=== PATIENT | male | born 1975 | race Caucasian/White ===

== ENCOUNTER 2022-10-30 00:14 | Emergency (ER) | payer OTHER, SELFPAY ==
[2022-10-30 00:20] VITALS: BP 140/70; PULSE 100; O2SAT 96; BMI 22.1
[2022-10-30 00:33] VITALS: BP 135/81; PULSE 104; RESP 18; TEMP 36.7; O2SAT 99
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
--- NOTE | 2022-10-30 01:06 | MHC.EDTECH ---
This tech assisted with lac to front of head. This tech cleaned patients face and lac to top of head. Patent is resting comfortably at this time. Psychiatric Orderly at bedside with patient
== END 2022-10-30 01:40 | disposition home or self-care (01) ==
PROVIDERS: Emergency Provider Emergency Medicine
DX: S01.81XA Laceration without foreign body of other part of head, initial encounter (principal); Y00.XXXA Assault by blunt object, initial encounter; Y93.89 Activity, other specified; Y92.039 Unspecified place in apartment as the place of occurrence of the external cause; Y99.9 Unspecified external cause status
CPT/HCPCS: 12001; 99284

== ENCOUNTER 2022-11-07 10:24 | Emergency (ER) | payer OTHER, SELFPAY ==
[2022-11-07 10:29] VITALS: BP 119/81; PULSE 75; RESP 17; TEMP 35.7; O2SAT 99; BMI 25.4
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
== END 2022-11-07 11:12 | disposition home or self-care (01) ==
LOC: HO.ED 10:43
PROVIDERS: Emergency Provider Emergency Medicine
DX: Z48.02 Encounter for removal of sutures (principal)
CPT/HCPCS: 99282

== ENCOUNTER 2023-09-09 14:56 | Inpatient (IN) | payer OTHER, SELFPAY ==
[2023-09-09] VITALS (7 sets, daily range): BP systolic 117–135; BP diastolic 72–94; PULSE 89–130; RESP 16–18; TEMP 36.2–36.4; O2SAT 96–97; BMI 24.0
--- NOTE | ~2023-09-09 | XR_ITS ---
EXAMINATION: XR CHEST CLINICAL INFORMATION: Syncope COMPARISON: None available. TECHNIQUE: Frontal view of the chest was obtained. FINDINGS: No significant abnormality is noted involving the heart, lungs, mediastinum, bony thorax or soft tissues. XR/XR chest 1V IMPRESSION: Unremarkable examination.
--- NOTE | ~2023-09-09 | CT_ITS ---
EXAMINATION: CT HEAD WITHOUT CONTRAST CLINICAL INFORMATION: Syncope. Rule out stroke, bleed, mass effect. COMPARISON: None available. TECHNIQUE: Contiguous axial imaging was performed from the skull base to vertex without intravenous administration of contrast. This CT examination was performed using dose optimization techniques as appropriate, variously including the following: *Automated exposure control *Adjustment of mA and/or kV according to patient size (this includes techniques or standardized protocols for targeted exams where dose is matched to indication/reason for exam; i.e. extremities or head) *Use of iterative reconstruction technique DLP: 739 mGy-cm FINDINGS: There is no intracranial hemorrhage. There is no evidence of acute/subacute cerebral or cerebellar infarction. There is no midline shift, mass effect, or extra-axial fluid collection. No hydrocephalus. The mastoid air cells are well aerated. Paranasal sinuses are clear. CT/CT head/brain wo IV con IMPRESSION: No acute intracranial pathology. No intracranial hemorrhage or evidence of acute/subacute cerebral or cerebellar infarction. No mass effect.
--- NOTE | 2023-09-09 15:22 | ECG_ITS ---
Test Reason : Syncope Blood Pressure : / mmHG Vent. Rate : 102 BPM Atrial Rate : 102 BPM P-R Int : 170 ms QRS Dur : 080 ms QT Int : 368 ms P-R-T Axes : 066 000 037 degrees QTc Int : 479 ms Sinus tachycardia Otherwise normal ECG No previous ECGs available Referred By: Jacky Avila Electronically Signed By:ADAN KEATING MD
--- NOTE | 2023-09-09 15:22 | ED.SYNCOPE ---
HPI - Syncope General Chief Complaint: Syncope Stated Complaint: UNRESPONSIVE EPISODE,AMS NOW,NOT SPEAKING PER EMS Time Seen by Provider: 09/09/23 15:21 Source: patient, family and EMS Mode of arrival: EMS Limitations: no limitations History of Present Illness HPI narrative: 48-year-old male who presents emergency department for evaluation of possible seizure. Patient has no memory of the event the information comes from the patient's who is here in the emergency department with him. Patient was sitting on the sofa talking to his . His states that he suddenly started shaking and frothing at the mouth. She lied her down on his side until the shaking stopped. She states that it lasted approximately 3-5 minutes. After the shaking event resolved the patient appeared to be sleeping and snoring. called an ambulance by the time the patient came to the emergency department he was awake and alert. The patient states he has never had a seizure before. He states he does drink at least 4 shots of bourbon per day. His last drink was yesterday. He states that he often does get the shakes when he stops drinking. He has never had delirium tremens. He does smoke marijuana 2 to 3 times daily. He denies drug use. The patient was started on hydroxyzine in September 2023 for anxiety. Seizures this did as an adverse reaction to hydroxyzine. Related Data Allergies Allergy/AdvReac Type Severity Reaction Status Date / Time No Known Allergies Allergy Verified 09/09/23 15:25 [No Known Allergies*] Review of Systems Review of Systems: Yes all other systems are reviewed and are negative [facility] Past Medical History [facility] Narrative: Past medical history: Anxiety. Social history: Patient is and his is here in the emergency department with him. The patient does smoke cigarettes. He drinks 4 shots of bourbon daily with his last drink being yesterday. He marijuana 2-3 times daily. Social History Social History Alcohol intake: current Alcohol intake frequency: a few times a month Alcohol type: beer Smoked in Last 30 Days: Yes Use of substances other than those prescribed or required for medical reasons: Yes Substance Use Type: Marijuana Substance Use Frequency: Chronic Longstanding Last Used Substance: Hours (ago) Any prior treatment program specific to substance use: No Advance Directives: No Advance Directives Information Provided: No Physical Exam Vital Signs: Vital Signs: Last Vital Signs Temp 97.6 F 09/09/23 15:27 Pulse 112 H 09/09/23 15:27 Resp 18 09/09/23 15:27 BP 135/94 H 09/09/23 15:27 Pulse Ox 97 09/09/23 15:36 O2 Del Method Room Air 09/09/23 15:36 BMI result Body Mass Index 24.0 Vital signs were normal except for an elevated blood pressure of 135/94. Exam: General: Awake, alert in no distress, answers questions appropriately, does have bilateral nystagmus Head: Normocephalic, atraumatic EENT: PERRL, Lids normal, sclera normal, conjunctiva normal, nose normal , ears normal, throat without erythema or exudates Neck: Supple, no adenopathy Lung: breath sounds symmetric, no wheezing, rales or rhonchi Chest: symmetric movement, nontender Heart: regular rate and rhythm, normal S1, S2 no murmurs or rubs Abdomen: soft, non-tender, nondistended, normal bowel sounds Back: no vertebral tenderness, no CVAT Extremities: no deformities, moves all extremities symmetrically Neuro: Awake, alert, oriented, normal speech, cranial nerves intact, moves all extremities symmetrically Psych: Pleasant, cooperative Medications Administered Generic Name Dose Route Start Last Admin Trade Name Freq PRN Reason Stop Dose Admin Sodium Chloride 1,000 mls @ 999 mls/hr 09/09/23 15:22 09/09/23 15:43 Ns IV 09/09/23 16:22 999 mls/hr .Q1H1M STA Administration Medical Decision Making Medical Decision Making [facility] Narrative: 48-year-old male anxiety, chronic distended who presents emergency department for evaluation of possible seizure. Patient's witnessed a shaking event which is consistent with a tonic-clonic seizure, lasting 3-5 minutes with a postictal period which was all by the time he got to the emergency department. Patient does drink 4 shots of bourbon per day in his last drink was yesterday. He does get shakes when he stops drinking but he has never had delirium tremors. The patient was started hydroxyzine in July of 2023 for anxiety and seizures listed as an adverse reaction for this medication. Vital signs did reveal an elevated blood pressure of 135/94 and elevated pulse of 112. Exam was otherwise unremarkable. Differential diagnosis: ?Includes but is not limited to seizure, alcohol withdrawal seizure, seizure caused by hydroxyzine, electrolyte abnormality, anemia, Patient was initially treated with the following: CBC, CMP, lipase, troponin, lactic acid, CK, PT/INR, ethanol level, drug screen urine, magnesium, phosphate Course: 16:42 My interpretation patient's laboratory evaluation is as follows: CBC normal. PT/INR normal. Lactic acid 5.4-this is consistent with seizure. AST elevated 40 CK elevated 427-secondary to seizure. Ethanol level was below detectable limits. At the end of my shift, patient's COVID-19, RSV and influenza pending. CT scan of the head is also pending. Patient's seizure may be caused by alcohol withdrawal, hydroxyzine or combination of the two. Therefore give the patient Ativan 1 mg IV for possible withdrawal, patient will be placed on CIWA protocol. Patient QTC interval is prolonged at 479 milliseconds, therefore I ordered magnesium 2 g IV. At the end of my shift, patient's care was turned over to my colleague, Dr. Halle Fowler Admission/Observation Consideration of admission/observation: Escalation of care including admission/observation considered Lab Data MDM Lab Attestation statement: I reviewed the patient's lab results. 09/09/23 15:41 09/09/23 15:41 Labs: Lab Results 09/09/23 Range/Units 15:41 WBC 10.6 (4.8-10.8) X10*3/uL RBC 5.81 H (4.60-5.80) X10*6/uL Hgb 14.5 (14.0-18.0) g/dl Hct 43.7 (42.0-52.0) % MCV 75.2 L (80.0-98.0) fL MCH 25.0 L (27.0-33.0) pg MCHC 33.2 (31.0-36.0) g/dl RDW 15.9 (11.0-16.0) % Plt Count 213 (160-400) X10*3/uL MPV 10.6 (9.4-12.4) fL Immature Gran % (Auto) 0.6 H (0.0-0.4) % Neut % (Auto) 71.5 (45-73) % Lymph % (Auto) 20.0 (20-40) % [place] % (Auto) 6.4 (2-11) % Eos % (Auto) 0.9 (0-4) % Baso % (Auto) 0.6 (0-2) % Lymph # (Auto) 2.1 (1.2-4.9) X10*3/uL [place] # (Auto) 0.7 (0.1-1.2) X10*3/uL Eos # (Auto) 0.1 (0.0-0.4) X10*3/uL Baso # (Auto) 0.1 (0.0-0.2) X10*3/uL Abs Immat Gran (auto) 0.06 H (0.00-0.03) X10*3/uL Absolute Neuts (auto) 7.6 (2.0-8.3) x10*3/uL Absolute Nucleated RBC 0.000 (0.0-0.012) X10*3/uL Nucleated RBC % (auto) 0.0 (0.0-0.2) /100WBC PT 10.9 L (11.1-13.3) SEC INR 0.9 (0.9-1.1) Sodium 136 (135-145) mmol/L Potassium 3.4 (3.3-5.1) mmol/L Chloride 96 (96-108) mmol/L Carbon Dioxide 28 (22-29) mmol/L Anion Gap 15 (12-20) BUN 12 (9-16) mg/dL Creatinine 1.18 (0.5-1.4) mg/dL Estim Creat Clear Calc 78.2 Estimated GFR > 60 Random Glucose 145 H (60-115) mg/dL Calcium 10.3 H (8.4-10.2) mg/dL Total Bilirubin 0.9 (0.0-1.0) mg/dL AST 40 H (5-37) U/L ALT 24 (0-40) U/L Alkaline Phosphatase 79 (39-117) U/L Total Creatine Kinase 427 H (38-174) U/L Total Protein 8.4 H (6.5-8.0) g/dL Albumin 4.6 (3.5-5.0) g/dL Lipase 26 (8-78) U/L Ethyl Alcohol < 10 mg/dL Independent Interpretation I performed an independent interpretation of an: EKG Interpretation: My independent interpretation patient's 12 EKG is as follows: Sinus tachycardia with a rate of 102, normal RI interval, QRS duration, prolonged QTC of 479 milliseconds. No old EKG for comparison Critical Care Time Critical Care Time Critical Care Time: Yes Total Critical Care Time: 45 Attestation: Critical Care: The patient was critically ill with a high probability of imminent or life threatening deterioration. I spent greater than 30 minutes of discontinuous time evaluating the patient,delivering critical care at the bedside, discussing and evaluating pertinent data with consultants. Critical care time does not include time spent performing separately billable procedures or teaching. Total time spent performing critical care was 45 minutes. Discharge Plan Discharge Clinical Impression: New onset seizure, Alcohol withdrawal, Prolonged QT interval Patient Disposition: Still a Patient
[2023-09-09] MEDS: 0.9 % Sodium Chloride 1,000 ML 999 ML IV (15:43)
[2023-09-09 15:46] LABS: MANUAL DIFF FLAG NO
[2023-09-09 15:48] LABS: Basophils Absolute Auto 0.1 X10*3/uL (0.0-0.2); Basophils Percent Auto 0.6 % (0-2); Eosinophils Absolute Auto 0.1 X10*3/uL (0.0-0.4); Eosinophils Percent Auto 0.9 % (0-4); Hematocrit 43.7 % (42.0-52.0); Hemoglobin 14.5 g/dl (14.0-18.0); Imm Gran Abs Auto 0.06 X10*3/uL (0.00-0.03); Imm Gran Pct Auto 0.6 % (0.0-0.4); Lymphocytes Absolute Auto 2.1 X10*3/uL (1.2-4.9); Mean Corpuscular HGB Conc 33.2 g/dl (31.0-36.0); Mean Corpuscular Volume 75.2 fL (80.0-98.0); Mean Platelet Volume 10.6 fL (9.4-12.4); Monocytes Absolute Auto 0.7 X10*3/uL (0.1-1.2); Monocytes Percent Auto 6.4 % (2-11); Neutrophils Absolute Auto 7.6 x10*3/uL (2.0-8.3); Neutrophils Percent Auto 71.5 % (45-73); Platelet Count 213 X10*3/uL (160-400); Red Blood Count 5.81 X10*6/uL (4.60-5.80); Red Cell Distribution Width 15.9 % (11.0-16.0); White Blood Count 10.6 X10*3/uL (4.8-10.8)
[2023-09-09 16:11] LABS: INTERNATIONAL NORM RATIO 0.9 (0.9-1.1); Prothrombin Time 10.9 SEC (11.1-13.3)
[2023-09-09 16:13] LABS: Alanine Aminotransferase 24 U/L (0-40); Albumin Level 4.6 g/dL (3.5-5.0); Alkaline Phosphatase 79 U/L (39-117); Anion Gap 15 (12-20); Aspartate Amino Transferase 40 U/L (5-37); Bilirubin Total 0.9 mg/dL (0.0-1.0); Blood Urea Nitrogen 12 mg/dL (9-16); Calcium 10.3 mg/dL (8.4-10.2); Carbon Dioxide 28 mmol/L (22-29); Chloride 96 mmol/L (96-108); Creatinine Clr Calc Pharmacy 78.2; Estimated Glomerular Filt Rate > 60; Ethanol < 10 mg/dL; Glucose Random 145 mg/dL (60-115); Lipase 26 U/L (8-78); Potassium 3.4 mmol/L (3.3-5.1); Sodium 136 mmol/L (135-145); Total Protein 8.4 g/dL (6.5-8.0)
[2023-09-09 16:17] LABS: Troponin-I High Sensitivity 5.8 ng/L (<3.5-35.0)
[2023-09-09 16:24] LABS: Lactic Acid 5.4 mmol/L (0.5-2.0)
--- NOTE | 2023-09-09 16:40 | PC.NURSE ---
pt a&ox3, vss, front desk monitor intact- sinus tach on monitor, ekg performed, iv inserted, labs drawn, nasal swab obtained, seizure precautions applied, pt c/o 2/10 upper back pain which is new to him, call finney within reach, will continue to monitor.
--- NOTE | 2023-09-09 16:41 | PC.NURSE ---
pt to ct scan
[2023-09-09 16:48] LABS: Influenza A PCR NEGATIVE (Negative); Influenza B PCR NEGATIVE (Negative); Resp Syncy Virus RNA Qual PCR NEGATIVE (Negative); SARS COV2 PCR INHOUSE NEGATIVE (Negative)
[2023-09-09] MEDS: PHENobarbitaL sodium 130 MG/ML IM ONCE 339.3 MG IM (17:10)
[2023-09-09] MEDS: LORazepam 2 MG/ML VIAL 1 MG IVPUSH (17:11)
[2023-09-09] MEDS: Magnesium Sulfate/H2O 2 GM/50 ML PIGGYBACK IV (17:11)
--- NOTE | 2023-09-09 17:17 | PC.NURSE ---
Addendum entered by Rose Shah RN 09/09/23 19:07: pt has bilat nystagmus at baseline Original Note: patient a&ox3, vss, clinical research monitor intact, pt medicated per order, family at bedside, pt admitting now that family is here that hes a daily drinker of hard liquor, no seizure activity noted since arrival- seizure precautions remain intact, call finney within reach, will continue to monitor
[2023-09-09 17:32] LABS: Magnesium 1.5 mg/dL (1.6-2.6); Phosphorus 1.8 mg/dL (2.7-4.5)
[2023-09-09 17:45] LABS: Reflex Lactate? Lactic Acid Added
--- NOTE | 2023-09-09 18:19 | PHA.MEDREC ---
Pharmacy Consult ? Medication Reconciliation Pharmacy has completed the medication reconciliation. Patient's family reported medication. Marina Angulo, RianaD
[2023-09-09 19:35] LABS: ~Lactic Acid-LAB USE ONLY 1.2 mmol/L (0.5-2.0)
--- NOTE | 2023-09-09 19:52 | P.HPHOSP_ITS ---
History of Present Illness Date of Service: 09/09/23 Attending physician on admission: Torrie Baker Chief Complaint: new onset seizure 48-year-old male with history of alcohol dependence presents to the ED earlier today for evaluation of new onset seizure activity. The patient denies any history of seizures. No family history of epileptic seizure disorder. He reports he does drink between 1-2 pt of bourbon on a daily basis and has been trying to cut back drinking about 4 shots daily. Last drink was around 23:00 last night. He states he does sometimes experience withdrawal symptoms including tremors when not drinking but has never had an alcohol withdrawal seizure and has never developed delirium tremens. He reports smoking marijuana about 2-3 times daily but denies any illicit drug use. He does smoke about 5 cigarettes on a daily basis. He does not recall the seizure but his reproted to EMS the patient became stiff and tremulous and was foaming at the mouth. Lasted about 2-5 minutes and called ems. On arrival, pt tachycardic to 112, vitals otherwise stable. No hypoxia. No leukocytosis or anemia. Renal function and electrolyte levels normal except for magnesium 1.5 and phosphorus 1.8.. Initial lactic acid 5.4, repeat 1.2. Total CK 427. Troponin 5.8. Negative for any COVID-19, influenza, RSV. Ethyl alcohol level below detectable limits. UDS pending. CXR unremarkable. CT head negative for any acute intracranial abnormality. EKG shows sinus tachycardia, rate 102, no ST/T-wave abnormality. In the ED, given 1 mg lorazepam, 2 g IV magnesium, 1 L IV NS and initiated on phenobarbital per protocol. Review of Systems 2 Review of Systems: General: No fevers, malaise, unintentional weight loss HEENT: No blurred vision, diplopia. No sore throat, nasal congestion, rhinorrhea, sinus pain, ear pain Cardiovascular: No chest pain, palpitations, or leg edema Respiratory: No shortness of breath, wheezing, cough GI: No abdominal pain, nausea, vomiting, diarrhea, constipation, melena, hematochezia : No dysuria, hematuria, increased urinary frequency, decreased urinary output MSK: No myalgia, back pain Neuro: No headaches, weakness, paresthesias. +seizure Skin: No rashes or lesions [facility] Medical History (Updated 09/09/23 @ 19:58 by JANN Peñaloza) Albinism Alcohol use disorder Social History (Updated 09/09/23 @ 19:58 by JANN Peñaloza) Alcohol intake: current Alcohol intake frequency: 3 or more drinks per day Alcohol type: beer and hard liquor Patient Tobacco Use Status: Current everyday Tobacco user Smoked in Last 30 Days: Yes Use of substances other than those prescribed or required for medical reasons: Yes Substance Use Type: Marijuana Substance Use Frequency: Chronic Longstanding Last Used Substance: Hours (ago) Any prior treatment program specific to substance use: No Advance Directives: No Advance Directives Information Provided: No Nutrition Risks: No Nutritional Risk Meds Allergies Allergy/AdvReac Type Severity Reaction Status Date / Time No Known Allergies Allergy Verified 09/09/23 15:25 [No Known Allergies*] Active Medications: Current Medications Acetaminophen (Acetaminophen 325 Mg Tablet) 650 mg PO Q6H PRN PRN Reason: Pain, Mild (Pain Scale 1-3) Enoxaparin Sodium (Enoxaparin Sodium 40 Mg/0.4 Ml Syringe) 40 mg SUBCUT Q24H DONNA Hydroxyzine HCl (Hydroxyzine Hcl 25 Mg Tablet) 25 mg PO BEDTIME DONNA Thiamine HCl 100 mg/ Sodium (Chloride) 101 mls @ 202 mls/hr IV DAILY DONNA Folic Acid 1 mg/ Sodium (Chloride) 50.2 mls @ 100.4 mls/hr IV DAILY DONNA Stop: 09/12/23 09:29 Ondansetron HCl (Ondansetron Hcl 4 Mg/2 Ml Vial) 4 mg IVPUSH Q8H PRN PRN Reason: Nausea and Vomiting Pharmacy Consult (Consult Rx Etoh Phenob Im/Po) 1 each MISCELLANE ONCE PRN; Protocol PRN Reason: Consult order Phenobarbital (Phenobarbital 15 Mg Tablet) 45 mg PO BID DONNA; Protocol Stop: 09/11/23 21:01 Phenobarbital (Phenobarbital 30 Mg Tablet) 30 mg PO BID DONNA; Protocol Stop: 09/13/23 21:01 Phenobarbital (Phenobarbital 15 Mg Tablet) 15 mg PO DAILY DONNA; Protocol Stop: 09/15/23 09:01 Phenobarbital Sodium (Phenobarbital Sodium 130 Mg/Ml Vial Im Q3hx2) 254.8 mg IM Q3H DONNA; Protocol Stop: 09/09/23 23:01 Senna (Sennosides 8.6 Mg Tablet) 17.2 mg PO BEDTIME PRN PRN Reason: Constipation Home Medications Medication Instructions Recorded Confirmed Last Taken Type hydroxyzine pamoate 25 mg capsule 25 mg PO BEDTIME 09/09/23 09/09/23 Unknown History Physical Exam 2 Vital Signs and Narrative: Vital Signs: Last Vital Signs Temp 97.2 F 09/09/23 19:40 Pulse 89 09/09/23 19:40 Resp 16 09/09/23 19:45 BP 124/72 09/09/23 19:40 Pulse Ox 96 09/09/23 19:40 O2 Del Method Room Air 09/09/23 19:40 BMI result Body Mass Index 24.0 Constitutional - Awake and Alert, No apparent distress Eyes - PERRLA, EOMI Cardiovascular - S1S2, RRR, No edema Respiratory - Normal lung expansion, Normal respiratory effort, No respiratory distress, CTA bilaterally Gastrointestinal - NT / ND; +BS; No rebound or guarding Extremities - no calf tenderness bilaterally, no swelling Skin - Warm/Dry Neurological - Alert & oriented x3, CN II-XII in tact Psychological - Appropriate affect Results Labs 09/09/23 15:41 09/09/23 15:41 Labs: Laboratory Results - last 24 hr 09/09/23 09/09/23 09/09/23 15:40 15:41 16:06 MCV 75.2 L MCH 25.0 L MCHC 33.2 RDW 15.9 Plt Count 213 MPV 10.6 Immature Gran % (Auto) 0.6 H Neut % (Auto) 71.5 Lymph % (Auto) 20.0 [place] % (Auto) 6.4 Eos % (Auto) 0.9 Baso % (Auto) 0.6 Lymph # (Auto) 2.1 [place] # (Auto) 0.7 Eos # (Auto) 0.1 Baso # (Auto) 0.1 Abs Immat Gran (auto) 0.06 H Absolute Neuts (auto) 7.6 Absolute Nucleated RBC 0.000 Nucleated RBC % (auto) 0.0 PT 10.9 L INR 0.9 Anion Gap 15 Estim Creat Clear Calc 78.2 Estimated GFR > 60 Random Glucose 145 H Lactic Acid 5.4 H* Lactic Acid F/U @ 2Hr Calcium 10.3 H Phosphorus 1.8 L Magnesium 1.5 L Total Bilirubin 0.9 AST 40 H ALT 24 Alkaline Phosphatase 79 Total Creatine Kinase 427 H Troponin I High Sens 5.8 Total Protein 8.4 H Albumin 4.6 Lipase 26 Ethyl Alcohol < 10 Influenza Type A (PCR) NEGATIVE Influenza Type B (PCR) NEGATIVE RSV RNA Qual (PCR) NEGATIVE SARS-CoV-2 RNA (RT-PCR) NEGATIVE 09/09/23 19:15 MCV MCH MCHC RDW Plt Count MPV Immature Gran % (Auto) Neut % (Auto) Lymph % (Auto) [place] % (Auto) Eos % (Auto) Baso % (Auto) Lymph # (Auto) [place] # (Auto) Eos # (Auto) Baso # (Auto) Abs Immat Gran (auto) Absolute Neuts (auto) Absolute Nucleated RBC Nucleated RBC % (auto) PT INR Anion Gap Estim Creat Clear Calc Estimated GFR Random Glucose Lactic Acid Lactic Acid F/U @ 2Hr 1.2 Calcium Phosphorus Magnesium Total Bilirubin AST ALT Alkaline Phosphatase Total Creatine Kinase Troponin I High Sens Total Protein Albumin Lipase Ethyl Alcohol Influenza Type A (PCR) Influenza Type B (PCR) RSV RNA Qual (PCR) SARS-CoV-2 RNA (RT-PCR) Imaging Radiologist's Impressions: Impressions Chest X-Ray 09/09/23 16:29 IMPRESSION: Unremarkable examination. Head CT 09/09/23 16:51 IMPRESSION: No acute intracranial pathology. No intracranial hemorrhage or evidence of acute/subacute cerebral or cerebellar infarction. No mass effect. Assessment and Plan (1) Alcohol withdrawal: Status: Acute (2) New onset seizure: Status: Acute Plan 48-year-old male with history of alcohol dependence presents to the ED earlier today for evaluation of new onset seizure activity. The patient denies any history of seizures. No family history of epileptic seizure disorder. He reports he does drink between 1-2 pt of bourbon on a daily basis and has been trying to cut back drinking about 4 shots daily. Last drink was around 23:00 last night. Pt will be admitted for management of new onset seizure r/t alcohol withdrawal #Acute alcohol withdrawal with etoh w/d seizure -head ct without acute intracranial abnormality -continue phenobarbital per protocol -IV thiamine -IV folic acid -monitor on CIWA q.4h -addiction medicine consult -seizure precautions -hold on Neurology consult at this time as seizures are related to alcohol withdrawal and are unlikely to be epileptic in etiology # acute hypomagnesemia -due to etoh -repleted with IV magnesium in the ED -initiate 400 mg magnesium oxide p.o. b.i.d. -follow magnesium levels # elevated CK -likely related to seizure, not acute rhabdomyolysis # acute lactic acidosis -related to seizure, not sepsis. Resolved with IV fluids DVT prophylaxis-Lovenox Full code Patient requires inpatient stay at least 2 midnights for management of acute alcohol withdrawal with alcohol withdrawal seizure requiring close monitoring as well as phenobarbital per protocol Quality Stroke Does the patient have a stroke diagnosis?: No VTE Prior VTE?: No VTE Risk Level:: Medical - moderate - high VTE Device Contraindication: Treatment Not Indicated VTE Drug Contraindication: N/A - Med Ordered
[2023-09-09] MEDS: PHENobarbitaL sodium 130 MG/ML VIAL IM Q3Hx2 254.8 MG IM ×2 (20:02→23:16)
[2023-09-09] MEDS: Nicotine 7 MG PATCH.TD24 TRANSDERMA (20:03)
[2023-09-09] MEDS: hydrOXYzine HCL 25 MG TABLET PO (20:03)
[2023-09-09] MEDS: Enoxaparin Sodium 40 MG/0.4 ML SYRINGE SUBCUT (20:03)
--- NOTE | 2023-09-09 20:15 | PC.NURSE ---
Pt aox4 resting at the bedside. No apparent distress noted. VSS. Medicated as scheduled. Pt tolerated well. Nicotine patch placed on the left shoulder. Call finney placed within reach. Pending bed assignment. Pt is aware of plan of care.
--- NOTE | 2023-09-09 23:23 | PC.NURSE ---
Medicated as scheduled with phenobarb. Pt tolerated well. Denies any pain at this time. Urine sample collected and sent. Ambulatory with steady gait to the bathroom.
[2023-09-09 23:26] LABS: Appearance Urine Cloudy; Color Urine Dark Yellow; Glucose Urine UA Negative (Negative); Leukocyte Esterase Urine Trace (Negative); Nitrite Urine Negative (Negative); PH 5.5 (5.0-9.0); Specific Gravity - Urine >= 1.030 (1.005-1.025); UMIC TRIGGER UACC YES; Urine Blood Negative (Negative); Urine Ketones Trace mg/dL (Negative); Urine Protein 30 (1+) mg/dL (Neg-Trace)
[2023-09-09 23:27] LABS: Bacteria Urine None Seen (None Seen); Hyaline Casts Urine 0-2 /LPF (0-2); RBC Urine 0-2 /HPF (0-2); Squamous Epithelial Cell Urine 0-2 /HPF (0-2); WBC Urine 0-5 /HPF (0-5)
[2023-09-09 23:35] LABS: Amphetamine Screen Urine Not Detected (Not Detect); Barbiturates, Urine POSITIVE (Not Detect); Benzodiazepines Screen Urine Not Detected (Not Detect); Cannabinoid Screen Urine POSITIVE (Not Detect); Cocaine Screen Urine Not Detected (Not Detect); Fentanyl, urine Not Detected (Not Detect); Opiate Screen Urine Not Detected (Not Detect); Phencyclidine Screen Urine Not Detected (Not Detect)
[2023-09-10] VITALS (8 sets, daily range): BP systolic 108–144; BP diastolic 66–96; PULSE 79–105; RESP 16–20; TEMP 36.3–37.2; O2SAT 94–100
--- NOTE | 2023-09-10 01:26 | PC.NURSE ---
Pt sleeping at the bedside. No apparent distress noted. VSS. Breaths even regular and unlabored. Pending bed assignment. Monitoring is ongoing.
[2023-09-10 06:24] LABS: MANUAL DIFF FLAG NO
[2023-09-10 06:51] LABS: Anion Gap 13 (12-20); Blood Urea Nitrogen 8 mg/dL (9-16); Calcium 9.2 mg/dL (8.4-10.2); Carbon Dioxide 25 mmol/L (22-29); Chloride 98 mmol/L (96-108); Creatinine Clr Calc Pharmacy 113.9; Estimated Glomerular Filt Rate > 60; Glucose Random 114 mg/dL (60-115); Magnesium 1.8 mg/dL (1.6-2.6); Potassium 2.6 mmol/L (3.3-5.1); Sodium 133 mmol/L (135-145)
[2023-09-10 07:02] LABS: Basophils Percent Auto 0.4 % (0-2); Eosinophils Absolute Auto 0.1 X10*3/uL (0.0-0.4); Eosinophils Percent Auto 0.9 % (0-4); Hematocrit 38.6 % (42.0-52.0); Hemoglobin 12.9 g/dl (14.0-18.0); Imm Gran Abs Auto 0.05 X10*3/uL (0.00-0.03); Imm Gran Pct Auto 0.6 % (0.0-0.4); Lymphocytes Percent Auto 11.3 % (20-40); Mean Corpuscular HGB Conc 33.4 g/dl (31.0-36.0); Mean Corpuscular Hemoglobin 25.2 pg (27.0-33.0); Mean Corpuscular Volume 75.4 fL (80.0-98.0); Mean Platelet Volume 11.8 fL (9.4-12.4); Monocytes Absolute Auto 0.5 X10*3/uL (0.1-1.2); Monocytes Percent Auto 5.4 % (2-11); Neutrophils Absolute Auto 7.3 x10*3/uL (2.0-8.3); Neutrophils Percent Auto 81.4 % (45-73); Platelet Count 154 X10*3/uL (160-400); Red Blood Count 5.12 X10*6/uL (4.60-5.80)
[2023-09-10] MEDS: Magnesium Oxide 400 MG TABLET PO ×2 (07:40→17:04)
[2023-09-10] MEDS: Potassium Chloride/H20 10 MEQ/100 ML PIGGYBACK 100 MEQ IV ×4 (07:40→11:38)
[2023-09-10] MEDS: Potassium Chloride ER 20 MEQ TAB.ER.PRT 40 MEQ PO (07:40)
--- NOTE | 2023-09-10 07:45 | PC.NURSE ---
this RN resumed care of pt at this time. a&ox4. vss and up to date. sinus tachy on the telemetry monitor - HR between 105-110 bpm. updated CIWA = 0. seizure precautions remain in place. pt denies pain. per pt - his original IV access was ripped out while he was sleeping - new 20gIV placed in the right AC. patent/intact. medication administered per provider order. pt sitting upright eating breakfast at this time. in no apparent distress. no sob/wob noted. respirations even and unlabored. plan of care ongoing. call finney placed within reach.
[2023-09-10] MEDS: Nicotine 7 MG PATCH.TD24 TRANSDERMA (08:06)
[2023-09-10] MEDS: PHENobarbitaL 15 MG TABLET 45 MG PO ×2 (08:06→20:53)
[2023-09-10] MEDS: Thiamine HCL 100 MG in 0.9 % Sodium Chloride 100 ML 202 MG IV (08:07)
[2023-09-10] MEDS: Potassium Phosphate/NS 15 MMOL/250 ML PLAST..BAG 62.5 MMOL IV ×2 (08:48→13:37)
--- NOTE | 2023-09-10 08:51 | PC.NURSE ---
medication administered per provider order. pharmacy called d/t medication needed. will administer when able. plan of care ongoing. call finney placed within reach.
[2023-09-10] MEDS: Folic Acid 1 MG in 0.9 % Sodium Chloride 50 ML 100.4 MG IV (09:00)
--- NOTE | 2023-09-10 09:09 | PC.NURSE ---
pt speaking w/ hospitalist - pt aware of plans in regards to being admitted at this time.
--- NOTE | 2023-09-10 10:53 | MHC.CM.PN ---
Attempted to meet with patient in regards to discharge planning. Patient currently in bathroom. Patient's sig other, Belkis, is at bedside and able to complete CM assessment. Patient lives with Belkis, ambulates independently and had no services prior to coming to the hospital. No services anticipated to be needed because patient is not homebound. Patient does not have a PCP. Information provided to obtain a PCP. Patient does not have a HCP. Information provided on completing a HCP. Belkis will transport patient home. Continue to monitor for d/c needs.
--- NOTE | 2023-09-10 13:37 | PC.NURSE ---
vss and up to date. nsr on the dog handler. medication delivered from pharmacy/administered at this time. pt resting comfortably w/ eyes closed in no apparent distress at this time. updated CIWA = 0. seizure precautions remain in place. respirations even and unlabored. pt waiting for bed assignment at this time. call finney placed within reach.
--- NOTE | 2023-09-10 14:43 | PC.NURSE ---
admission worksheet complete. transport notified at this time.
--- NOTE | 2023-09-10 15:13 | P.PNIM_ITS ---
Subjective Subjective Date of Service: 09/10/23 Interval History: Notes improvement since admission overall. No further seizure activity noted Review of Systems Denies chest pain Denies shortness of breath Denies nausea vomiting diarrhea Denies fever chills Physical Exam 2 Vital Signs: Vital Signs: Last Vital Signs Temp 99.0 F 09/10/23 13:09 Pulse 85 09/10/23 14:22 Resp 18 09/10/23 14:22 BP 111/84 09/10/23 14:22 Pulse Ox 94 09/10/23 14:22 O2 Del Method Room Air 09/10/23 14:22 BMI result Body Mass Index 24.0 Const: Other: Awake alert no acute distress Resp: Other: Clear to auscultation bilaterally no rales rhonchi or wheezes Cardio: Other: No S4; positive S1-S2; no S3 murmurs rubs or gallops GI: Other: Soft nontender nondistended normoactive bowel sounds Extrem: Other: No edema bilaterally Objective Data Active Medications Acetaminophen (Acetaminophen 325 Mg Tablet) 650 mg PO Q6H PRN PRN Reason: Pain, Mild (Pain Scale 1-3) Enoxaparin Sodium (Enoxaparin Sodium 40 Mg/0.4 Ml Syringe) 40 mg SUBCUT Q24H [facility] Last Admin: 09/09/23 20:03 Dose: 40 mg Documented By: TING Hydroxyzine HCl (Hydroxyzine Hcl 25 Mg Tablet) 25 mg PO BEDTIME [facility] Last Admin: 09/09/23 20:03 Dose: 25 mg Documented By: TING Thiamine HCl 100 mg/ Sodium (Chloride) 101 mls @ 202 mls/hr IV DAILY [facility] Last Infusion: 09/10/23 08:48 Dose: Infused Documented By: BEL Folic Acid 1 mg/ Sodium (Chloride) 50.2 mls @ 100.4 mls/hr IV DAILY [facility] Stop: 09/12/23 09:29 Last Infusion: 09/10/23 09:30 Dose: Infused Documented By: BEL Potassium Phosphate (Kphos) 15 mmol in 250 mls @ 62.5 mls/hr IV Q4H [facility] Stop: 09/10/23 15:44 Last Admin: 09/10/23 13:37 Dose: 62.5 mls/hr Documented By: BEL Magnesium Oxide (Magnesium Oxide 400 Mg Tablet) [facility] Last Admin: 09/10/23 07:40 Dose: 400 mg Documented By: BEL Nicotine (Nicotine 7 Mg Patch.Td24) 7 mg TRANSDERMA DAILY [facility] Last Admin: 09/10/23 08:06 Dose: 7 mg Documented By: BEL Ondansetron HCl (Ondansetron Hcl 4 Mg/2 Ml Vial) 4 mg IVPUSH Q8H PRN PRN Reason: Nausea and Vomiting Pharmacy Consult (Consult Rx Etoh Phenob Im/Po) 1 each MISCELLANE ONCE PRN; Protocol PRN Reason: Consult order Phenobarbital (Phenobarbital 15 Mg Tablet) 45 mg PO BID [facility]; Protocol Stop: 09/11/23 21:01 Last Admin: 09/10/23 08:06 Dose: 45 mg Documented By: BEL Phenobarbital (Phenobarbital 30 Mg Tablet) 30 mg PO BID [facility]; Protocol Stop: 09/13/23 21:01 Phenobarbital (Phenobarbital 15 Mg Tablet) 15 mg PO DAILY [facility]; Protocol Stop: 09/15/23 09:01 Senna (Sennosides 8.6 Mg Tablet) 17.2 mg PO BEDTIME PRN PRN Reason: Constipation Labs 09/10/23 05:21 09/10/23 05:21 Labs: Laboratory Results - last 24 hr 09/09/23 09/09/23 09/09/23 15:40 15:41 16:06 MCV 75.2 L MCH 25.0 L MCHC 33.2 RDW 15.9 Plt Count 213 MPV 10.6 Immature Gran % (Auto) 0.6 H Neut % (Auto) 71.5 Lymph % (Auto) 20.0 [place] % (Auto) 6.4 Eos % (Auto) 0.9 Baso % (Auto) 0.6 Lymph # (Auto) 2.1 [place] # (Auto) 0.7 Eos # (Auto) 0.1 Baso # (Auto) 0.1 Abs Immat Gran (auto) 0.06 H Absolute Neuts (auto) 7.6 Absolute Nucleated RBC 0.000 Nucleated RBC % (auto) 0.0 PT 10.9 L INR 0.9 Anion Gap 15 Estim Creat Clear Calc 78.2 Estimated GFR > 60 Random Glucose 145 H Lactic Acid 5.4 H* Lactic Acid F/U @ 2Hr Calcium 10.3 H Phosphorus 1.8 L Magnesium 1.5 L Total Bilirubin 0.9 AST 40 H ALT 24 Alkaline Phosphatase 79 Total Creatine Kinase 427 H Troponin I High Sens 5.8 Total Protein 8.4 H Albumin 4.6 Lipase 26 Urine Color Urine Appearance Urine pH Ur Specific [place] Urine Protein Urine Glucose (UA) Urine Ketones Urine Blood Urine Nitrite Ur Leukocyte Esterase Urine RBC Urine WBC Ur Squamous Epith Cells Urine Bacteria Hyaline Casts Urine Opiates Screen Urine Fentanyl Screen Ur Barbiturates Screen Ur Phencyclidine Scrn Ur Amphetamines Screen U Benzodiazepines Scrn Urine Cocaine Screen U Marijuana (THC) Screen Ethyl Alcohol < 10 Influenza Type A (PCR) NEGATIVE Influenza Type B (PCR) NEGATIVE RSV RNA Qual (PCR) NEGATIVE SARS-CoV-2 RNA (RT-PCR) NEGATIVE 09/09/23 09/09/23 09/10/23 19:15 23:16 05:21 MCV 75.4 L MCH 25.2 L MCHC 33.4 RDW 15.0 Plt Count 154 L D MPV 11.8 Immature Gran % (Auto) 0.6 H Neut % (Auto) 81.4 H Lymph % (Auto) 11.3 L [place] % (Auto) 5.4 Eos % (Auto) 0.9 Baso % (Auto) 0.4 Lymph # (Auto) 1.0 L [place] # (Auto) 0.5 Eos # (Auto) 0.1 Baso # (Auto) 0.0 Abs Immat Gran (auto) 0.05 H Absolute Neuts (auto) 7.3 Absolute Nucleated RBC 0.000 Nucleated RBC % (auto) 0.0 PT INR Anion Gap 13 Estim Creat Clear Calc 113.9 Estimated GFR > 60 Random Glucose 114 Lactic Acid Lactic Acid F/U @ 2Hr 1.2 Calcium 9.2 D Phosphorus Magnesium 1.8 Total Bilirubin AST ALT Alkaline Phosphatase Total Creatine Kinase Troponin I High Sens Total Protein Albumin Lipase Urine Color Dark Yellow Urine Appearance Cloudy Urine pH 5.5 Ur Specific [place] >= 1.030 H Urine Protein 30 (1+) H Urine Glucose (UA) Negative Urine Ketones Trace Urine Blood Negative Urine Nitrite Negative Ur Leukocyte Esterase Trace H Urine RBC 0-2 Urine WBC 0-5 Ur Squamous Epith Cells 0-2 Urine Bacteria None Seen Hyaline Casts 0-2 Urine Opiates Screen Not Detected Urine Fentanyl Screen Not Detected Ur Barbiturates Screen POSITIVE H Ur Phencyclidine Scrn Not Detected Ur Amphetamines Screen Not Detected U Benzodiazepines Scrn Not Detected Urine Cocaine Screen Not Detected U Marijuana (THC) Screen POSITIVE H Ethyl Alcohol Influenza Type A (PCR) Influenza Type B (PCR) RSV RNA Qual (PCR) SARS-CoV-2 RNA (RT-PCR) Assessment and Plan (1) Alcohol withdrawal: Status: Acute (2) New onset seizure: Status: Acute (3) Prolonged QT interval: Status: Acute Plan 48-year-old male with history of alcohol dependence presents to the ED earlier today for evaluation of new onset seizure activity. The patient denies any history of seizures. No family history of epileptic seizure disorder. He reports he does drink between 1-2 pt of bourbon on a daily basis and has been trying to cut back drinking about 4 shots daily. Last drink was around 23:00 last night. Pt will be admitted for management of new onset seizure r/t alcohol withdrawal 1.Acute alcohol withdrawal with etoh w/d seizure -CIWA 0 -continue phenobarbital per protocol -IV thiamine/IV folic acid -monitor on CIWA q.4h 2.Acute hypomagnesemia/hypophosphatemia/hypokalemia -all repleted -follow renals/divalents 3.Elevated CK -likely related to seizure -follow CPK Lovenox Full code Patient requires ongoing hospitalization for phenobarb protocol secondary to alcohol withdrawal and repletion of divalents Quality Stroke Does the patient have a stroke diagnosis?: No VTE Prior VTE?: No VTE Risk Level:: Medical - moderate - high VTE Device Contraindication: Treatment Not Indicated VTE Drug Contraindication: N/A - Med Ordered
[2023-09-10] MEDS: hydrOXYzine HCL 25 MG TABLET PO (20:54)
[2023-09-10] MEDS: Enoxaparin Sodium 40 MG/0.4 ML SYRINGE SUBCUT (20:54)
--- NOTE | 2023-09-11 | ECG_ITS ---
Test Reason : qtc prolongation Blood Pressure : / mmHG Vent. Rate : 088 BPM Atrial Rate : 088 BPM P-R Int : 168 ms QRS Dur : 082 ms QT Int : 388 ms P-R-T Axes : 058 -06 025 degrees QTc Int : 469 ms Normal sinus rhythm Normal ECG When compared with ECG of 09-SEP-2023 15:43, No significant change was found Referred By: Kenneth Almanza Electronically Signed By:ADAN KEATING MD
[2023-09-11 03:36] VITALS: BP 125/80; PULSE 88; RESP 16; TEMP 36.7; O2SAT 94
[2023-09-11 06:56] LABS: MANUAL DIFF FLAG NO
[2023-09-11 07:08] VITALS: BP 125/81; PULSE 87; RESP 20; TEMP 36.3; O2SAT 96
[2023-09-11 07:22] LABS: Alanine Aminotransferase 26 U/L (0-40); Albumin Level 3.6 g/dL (3.5-5.0); Alkaline Phosphatase 64 U/L (39-117); Anion Gap 11 (12-20); Aspartate Amino Transferase 70 U/L (5-37); Bilirubin Total 0.5 mg/dL (0.0-1.0); Blood Urea Nitrogen 6 mg/dL (9-16); Carbon Dioxide 26 mmol/L (22-29); Chloride 103 mmol/L (96-108); Creatinine Clr Calc Pharmacy 104.8; Estimated Glomerular Filt Rate > 60; Glucose Fasting 95 mg/dL (60-99); Magnesium 1.8 mg/dL (1.6-2.6); Phosphorus 3.1 mg/dL (2.7-4.5); Potassium 3.8 mmol/L (3.3-5.1); Sodium 136 mmol/L (135-145); Total Protein 6.7 g/dL (6.5-8.0)
[2023-09-11 07:29] LABS: Basophils Percent Auto 0.5 % (0-2); Eosinophils Absolute Auto 0.2 X10*3/uL (0.0-0.4); Eosinophils Percent Auto 2.3 % (0-4); Hemoglobin 12.6 g/dl (14.0-18.0); Imm Gran Abs Auto 0.03 X10*3/uL (0.00-0.03); Imm Gran Pct Auto 0.4 % (0.0-0.4); Lymphocytes Absolute Auto 1.5 X10*3/uL (1.2-4.9); Lymphocytes Percent Auto 18.9 % (20-40); Mean Corpuscular HGB Conc 33.2 g/dl (31.0-36.0); Mean Corpuscular Hemoglobin 25.1 pg (27.0-33.0); Mean Corpuscular Volume 75.8 fL (80.0-98.0); Mean Platelet Volume 11.3 fL (9.4-12.4); Monocytes Absolute Auto 0.5 X10*3/uL (0.1-1.2); Monocytes Percent Auto 5.9 % (2-11); Neutrophils Absolute Auto 5.7 x10*3/uL (2.0-8.3); Platelet Count 124 X10*3/uL (160-400); Red Blood Count 5.01 X10*6/uL (4.60-5.80); Red Cell Distribution Width 15.4 % (11.0-16.0); White Blood Count 7.9 X10*3/uL (4.8-10.8)
[2023-09-11] MEDS: PHENobarbitaL 15 MG TABLET 45 MG PO ×2 (09:00→20:13)
[2023-09-11] MEDS: Lactated Ringers 1,000 ML 100 ML IVCONT ×2 (09:00→17:50)
[2023-09-11] MEDS: Thiamine HCL 100 MG in 0.9 % Sodium Chloride 100 ML 202 MG IV (09:00)
[2023-09-11] MEDS: Folic Acid 1 MG in 0.9 % Sodium Chloride 50 ML 100.4 MG IV (09:00)
[2023-09-11] MEDS: Magnesium Oxide 400 MG TABLET PO ×2 (09:01→17:49)
[2023-09-11] MEDS: Nicotine 7 MG PATCH.TD24 TRANSDERMA (09:01)
[2023-09-11 11:21] VITALS: BP 143/94; PULSE 85; RESP 20; TEMP 36.2; O2SAT 99
--- NOTE | 2023-09-11 12:12 | HO.ADDICTCON ---
History of Present Illness Date of Service: 09/11/23 Chief Complaint: ETOH WD SEIZURE Reason for Consult: AUD Sources of Information: patient interviewed and chart reviewed HPI Narrative: Patient is a 48 ear old male who is currently medically admitted following alcohol withdrawal seizure at home. Patient seen in room 460, he was awake, alert engaged in interview. He reports that for a few months he has been drinking a pint of bourbon daily. Prior to this he would drink on occasion, however unclear how accurate this is based on several stories patient shared that have occurred over the years. Discussed recent seizure and how it is likely related to ETOH use and patient quite insistent that alcohol did not have anything to do with it, in fact, I had not had anything to drink since the day before . This tech writer attempted to provide connection btwn the two things, however he was steadfast in his belief--he believes that the seizure was brought on by a new mediation prescribed to him, Hydroxyzine. Assured patient that the chances of hydroxyzine being related to seizure was unlikely, and he politely disagreed. He reports strong family history of AUD Denies any history of treatment for himself Reports several days of not drinking, but then resumes due to physical sx that are uncomfortable to him. Reports numerous lifelong social stressors including inability to work, discord with his and children, and acknowledgment that he has limited coping strategies. He reports that he has been seeing a therapist for the past few months and finds this helpful He reports his goal is to be able to go to a bar and have a beer and not get out of control This tech writer introduced recovery resources and medications as an option to work towards his goal and patient politely declined . He associates medications with his seizure. He feels groups and other alcohol related support systems mean that he can not be in any space where there is alcohol, including restaurants and family events. Review of Systems Review of Systems Yes all other systems are reviewed and are negative Diagnostics Vital Signs (24Hr): Vital Signs - 24 hr 09/10/23 13:09 09/10/23 14:22 09/10/23 15:34 Temperature 99.0 F 97.7 F Pulse Rate 79 85 98 Respiratory Rate 16 18 20 Blood Pressure 108/79 111/84 144/87 H Pulse Oximetry 96 94 98 Oxygen Delivery Method Room Air Room Air Room Air 09/10/23 19:39 09/10/23 23:28 09/11/23 03:36 Temperature 98.9 F 97.4 F 98.1 F Pulse Rate 93 85 88 Respiratory Rate 16 16 16 Blood Pressure 140/88 H 131/96 H 125/80 Pulse Oximetry 100 95 94 Oxygen Delivery Method Room Air Room Air Room Air 09/11/23 07:08 09/11/23 11:21 Temperature 97.3 F 97.1 F Pulse Rate 87 85 Respiratory Rate 20 20 Blood Pressure 125/81 143/94 H Pulse Oximetry 96 99 Oxygen Delivery Method Room Air Room Air BMI result Body Mass Index 24.0 Labs 09/11/23 06:49 09/11/23 06:49 Labs: Laboratory Results - last 48 hr 09/09/23 09/09/23 09/09/23 15:40 15:41 16:06 WBC 10.6 RBC 5.81 H Hgb 14.5 Hct 43.7 MCV 75.2 L MCH 25.0 L MCHC 33.2 RDW 15.9 Plt Count 213 MPV 10.6 Immature Gran % (Auto) 0.6 H Neut % (Auto) 71.5 Lymph % (Auto) 20.0 [place] % (Auto) 6.4 Eos % (Auto) 0.9 Baso % (Auto) 0.6 Lymph # (Auto) 2.1 [place] # (Auto) 0.7 Eos # (Auto) 0.1 Baso # (Auto) 0.1 Abs Immat Gran (auto) 0.06 H Absolute Neuts (auto) 7.6 Absolute Nucleated RBC 0.000 Nucleated RBC % (auto) 0.0 PT 10.9 L INR 0.9 Sodium 136 Potassium 3.4 Chloride 96 Carbon Dioxide 28 Anion Gap 15 BUN 12 Creatinine 1.18 Estim Creat Clear Calc 78.2 Estimated GFR > 60 Random Glucose 145 H Fasting Glucose Lactic Acid 5.4 H* Lactic Acid F/U @ 2Hr Calcium 10.3 H Phosphorus 1.8 L Magnesium 1.5 L Total Bilirubin 0.9 AST 40 H ALT 24 Alkaline Phosphatase 79 Total Creatine Kinase 427 H Troponin I High Sens 5.8 Total Protein 8.4 H Albumin 4.6 Lipase 26 Urine Color Urine Appearance Urine pH Ur Specific [place] Urine Protein Urine Glucose (UA) Urine Ketones Urine Blood Urine Nitrite Ur Leukocyte Esterase Urine RBC Urine WBC Ur Squamous Epith Cells Urine Bacteria Hyaline Casts Urine Opiates Screen Urine Fentanyl Screen Ur Barbiturates Screen Ur Phencyclidine Scrn Ur Amphetamines Screen U Benzodiazepines Scrn Urine Cocaine Screen U Marijuana (THC) Screen Ethyl Alcohol < 10 Influenza Type A (PCR) NEGATIVE Influenza Type B (PCR) NEGATIVE RSV RNA Qual (PCR) NEGATIVE SARS-CoV-2 RNA (RT-PCR) NEGATIVE 09/09/23 09/09/23 09/10/23 19:15 23:16 05:21 WBC 9.0 RBC 5.12 Hgb 12.9 L Hct 38.6 L MCV 75.4 L MCH 25.2 L MCHC 33.4 RDW 15.0 Plt Count 154 L D MPV 11.8 Immature Gran % (Auto) 0.6 H Neut % (Auto) 81.4 H Lymph % (Auto) 11.3 L [place] % (Auto) 5.4 Eos % (Auto) 0.9 Baso % (Auto) 0.4 Lymph # (Auto) 1.0 L [place] # (Auto) 0.5 Eos # (Auto) 0.1 Baso # (Auto) 0.0 Abs Immat Gran (auto) 0.05 H Absolute Neuts (auto) 7.3 Absolute Nucleated RBC 0.000 Nucleated RBC % (auto) 0.0 PT INR Sodium 133 L Potassium 2.6 L* D Chloride 98 Carbon Dioxide 25 Anion Gap 13 BUN 8 L Creatinine 0.81 Estim Creat Clear Calc 113.9 Estimated GFR > 60 Random Glucose 114 Fasting Glucose Lactic Acid Lactic Acid F/U @ 2Hr 1.2 Calcium 9.2 D Phosphorus Magnesium 1.8 Total Bilirubin AST ALT Alkaline Phosphatase Total Creatine Kinase Troponin I High Sens Total Protein Albumin Lipase Urine Color Dark Yellow Urine Appearance Cloudy Urine pH 5.5 Ur Specific [place] >= 1.030 H Urine Protein 30 (1+) H Urine Glucose (UA) Negative Urine Ketones Trace Urine Blood Negative Urine Nitrite Negative Ur Leukocyte Esterase Trace H Urine RBC 0-2 Urine WBC 0-5 Ur Squamous Epith Cells 0-2 Urine Bacteria None Seen Hyaline Casts 0-2 Urine Opiates Screen Not Detected Urine Fentanyl Screen Not Detected Ur Barbiturates Screen POSITIVE H Ur Phencyclidine Scrn Not Detected Ur Amphetamines Screen Not Detected U Benzodiazepines Scrn Not Detected Urine Cocaine Screen Not Detected U Marijuana (THC) Screen POSITIVE H Ethyl Alcohol Influenza Type A (PCR) Influenza Type B (PCR) RSV RNA Qual (PCR) SARS-CoV-2 RNA (RT-PCR) 09/11/23 06:49 WBC 7.9 RBC 5.01 Hgb 12.6 L Hct 38.0 L MCV 75.8 L MCH 25.1 L MCHC 33.2 RDW 15.4 Plt Count 124 L MPV 11.3 Immature Gran % (Auto) 0.4 Neut % (Auto) 72.0 Lymph % (Auto) 18.9 L [place] % (Auto) 5.9 Eos % (Auto) 2.3 Baso % (Auto) 0.5 Lymph # (Auto) 1.5 [place] # (Auto) 0.5 Eos # (Auto) 0.2 Baso # (Auto) 0.0 Abs Immat Gran (auto) 0.03 Absolute Neuts (auto) 5.7 Absolute Nucleated RBC 0.000 Nucleated RBC % (auto) 0.0 PT INR Sodium 136 Potassium 3.8 D Chloride 103 Carbon Dioxide 26 Anion Gap 11 L BUN 6 L Creatinine 0.88 Estim Creat Clear Calc 104.8 Estimated GFR > 60 Random Glucose Fasting Glucose 95 Lactic Acid Lactic Acid F/U @ 2Hr Calcium 9.0 Phosphorus 3.1 Magnesium 1.8 Total Bilirubin 0.5 AST 70 H ALT 26 Alkaline Phosphatase 64 Total Creatine Kinase 4168 H Troponin I High Sens Total Protein 6.7 Albumin 3.6 Lipase Urine Color Urine Appearance Urine pH Ur Specific [place] Urine Protein Urine Glucose (UA) Urine Ketones Urine Blood Urine Nitrite Ur Leukocyte Esterase Urine RBC Urine WBC Ur Squamous Epith Cells Urine Bacteria Hyaline Casts Urine Opiates Screen Urine Fentanyl Screen Ur Barbiturates Screen Ur Phencyclidine Scrn Ur Amphetamines Screen U Benzodiazepines Scrn Urine Cocaine Screen U Marijuana (THC) Screen Ethyl Alcohol Influenza Type A (PCR) Influenza Type B (PCR) RSV RNA Qual (PCR) SARS-CoV-2 RNA (RT-PCR) Imaging Radiology Impressions: ITS Impressions Chest X-Ray 09/09/23 16:29 IMPRESSION: Unremarkable examination. Head CT 09/09/23 16:51 IMPRESSION: No acute intracranial pathology. No intracranial hemorrhage or evidence of acute/subacute cerebral or cerebellar infarction. No mass effect. Mental Status Exam Mental Status Exam Patient Appearance: Appropriate Level of Consciousness: Awake, Appropriate and Alert Patient Behavior: Talkative Mood Description: Calm Affect Description: Calm Speech Pattern: Clear Medications Medications Current Medications Acetaminophen (Acetaminophen 325 Mg Tablet) 650 mg PO Q6H PRN PRN Reason: Pain, Mild (Pain Scale 1-3) Enoxaparin Sodium (Enoxaparin Sodium 40 Mg/0.4 Ml Syringe) 40 mg SUBCUT Q24H [facility] Last Admin: 09/10/23 20:54 Dose: 40 mg Hydroxyzine HCl (Hydroxyzine Hcl 25 Mg Tablet) 25 mg PO BEDTIME [facility] Last Admin: 09/10/23 20:54 Dose: 25 mg Thiamine HCl 100 mg/ Sodium (Chloride) 101 mls @ 202 mls/hr IV DAILY [facility] Last Infusion: 09/11/23 09:48 Dose: Infused Folic Acid 1 mg/ Sodium (Chloride) 50.2 mls @ 100.4 mls/hr IV DAILY [facility] Stop: 09/12/23 09:29 Last Infusion: 09/11/23 09:48 Dose: Infused Lactated Ringer's (Lr) 1,000 mls @ 100 mls/hr IVCONT .Q10H [facility] Last Admin: 09/11/23 09:00 Dose: 100 mls/hr Magnesium Oxide (Magnesium Oxide 400 Mg Tablet) 400 mg PO BIDPC [facility] Last Admin: 09/11/23 09:01 Dose: 400 mg Nicotine (Nicotine 7 Mg Patch.Td24) 7 mg TRANSDERMA DAILY [facility] Last Admin: 09/11/23 09:01 Dose: 7 mg Ondansetron HCl (Ondansetron Hcl 4 Mg/2 Ml Vial) 4 mg IVPUSH Q8H PRN PRN Reason: Nausea and Vomiting Pharmacy Consult (Consult Rx Etoh Phenob Im/Po) 1 each MISCELLANE ONCE PRN; Protocol PRN Reason: Consult order Phenobarbital (Phenobarbital 15 Mg Tablet) 45 mg PO BID [facility]; Protocol Stop: 09/11/23 21:01 Last Admin: 09/11/23 09:00 Dose: 45 mg Phenobarbital (Phenobarbital 30 Mg Tablet) 30 mg PO BID [facility]; Protocol Stop: 09/13/23 21:01 Phenobarbital (Phenobarbital 15 Mg Tablet) 15 mg PO DAILY [facility]; Protocol Stop: 09/15/23 09:01 Senna (Sennosides 8.6 Mg Tablet) 17.2 mg PO BEDTIME PRN PRN Reason: Constipation Allergies Allergies Allergy/AdvReac Type Severity Reaction Status Date / Time No Known Allergies Allergy Verified 09/09/23 15:25 [No Known Allergies*] Assessment & Plan Assessment & Plan (1) Alcohol use disorder, severe, dependence: Status: Acute Code(s): F10.20 - Alcohol dependence, uncomplicated Assessment and Plan: patient declines any referrals or medications for AUD resource folder left with patient--including topics such as risk reduction related to drinking, information about medications, recovery coaching, etc. encouraged to continue with therapist unclear if there is a cognitive issue impacting patients understanding of AUD, however unable to address that in this setting Total time managing care of this patient today 35 minutes. [facility] Past Medical History Medical History (Updated 09/11/23 @ 12:13 by Noemi Bustamante CNP) Albinism Alcohol use disorder Social History Social History (Updated 09/09/23 @ 19:58 by JANN Peñaloza) Household Members: Spouse and Children Housing: House Do you presently have visiting nurse or other home services: No Alcohol intake: current Alcohol intake frequency: 3 or more drinks per day Alcohol type: beer and hard liquor Patient Tobacco Use Status: Current everyday Tobacco user Tobacco use type: Cigarette and Cigar Substance Use Type: Marijuana service: No
--- NOTE | 2023-09-11 12:38 | HO.PM.IMPN ---
Subjective Subjective Date of Service: 09/11/23 Interval History: seen and examined this morning follow up for alcohol withdrawal seizure Feeling well this morning, no withdrawal symptoms Review of Systems Review of Systems: Yes all other systems are reviewed and are negative Constitutional Constitutional: Denies chills and Denies fever(s) Cardiovascular Cardiovascular: Denies chest pain, Denies palpitations and Denies dyspnea Respiratory Respiratory: Denies cough and Denies dyspnea Gastrointestinal Gastrointestinal: Denies abdominal pain, Denies nausea and Denies vomiting Endocrine Endocrine: Denies palpitations Physical Exam Vital Signs: Vital Signs: Last Vital Signs Temp 97.1 F 09/11/23 11:21 Pulse 85 09/11/23 11:21 Resp 20 09/11/23 11:21 BP 143/94 H 09/11/23 11:21 Pulse Ox 99 09/11/23 11:21 O2 Del Method Room Air 09/11/23 11:21 BMI result Body Mass Index 24.0 Const: General: cooperative, comfortable, no acute distress, alert and awake Nutritional Appearance: average body habitus Orientation/consciousness: patient oriented x3 Eyes: Other: b/l nystagmus Resp: Effort & Inspection: normal respiratory effort, able to speak in complete sentences, no respiratory distress and no use of accessory muscles Cardio: Rate: regular rate Heart sounds: S1 normal heart sound present and S2 normal heart sound present GI: Inspection: No distended Palpation (GI): Soft to palpation and nontender Neuro: General: patient oriented x3 and moves all extremities Extrem: General: Yes no pedal edema Objective Data Active Medications Acetaminophen (Acetaminophen 325 Mg Tablet) 650 mg PO Q6H PRN PRN Reason: Pain, Mild (Pain Scale 1-3) Enoxaparin Sodium (Enoxaparin Sodium 40 Mg/0.4 Ml Syringe) 40 mg SUBCUT Q24H [facility] Last Admin: 09/10/23 20:54 Dose: 40 mg Documented By: JONATAN Hydroxyzine HCl (Hydroxyzine Hcl 25 Mg Tablet) 25 mg PO BEDTIME [facility] Last Admin: 09/10/23 20:54 Dose: 25 mg Documented By: JONATAN Thiamine HCl 100 mg/ Sodium (Chloride) 101 mls @ 202 mls/hr IV DAILY [facility] Last Infusion: 09/11/23 09:48 Dose: Infused Documented By: EFRAIN Folic Acid 1 mg/ Sodium (Chloride) 50.2 mls @ 100.4 mls/hr IV DAILY [facility] Stop: 09/12/23 09:29 Last Infusion: 09/11/23 09:48 Dose: Infused Documented By: EFRAIN Lactated Ringer's (Lr) 1,000 mls @ 100 mls/hr IVCONT .Q10H [facility] Last Admin: 09/11/23 09:00 Dose: 100 mls/hr Documented By: EFRAIN Magnesium Oxide (Magnesium Oxide 400 Mg Tablet) 400 mg PO BIDPC [facility] Last Admin: 09/11/23 09:01 Dose: 400 mg Documented By: EFRAIN Nicotine (Nicotine 7 Mg Patch.Td24) 7 mg TRANSDERMA DAILY [facility] Last Admin: 09/11/23 09:01 Dose: 7 mg Documented By: EFRAIN Ondansetron HCl (Ondansetron Hcl 4 Mg/2 Ml Vial) 4 mg IVPUSH Q8H PRN PRN Reason: Nausea and Vomiting Pharmacy Consult (Consult Rx Etoh Phenob Im/Po) 1 each MISCELLANE ONCE PRN; Protocol PRN Reason: Consult order Phenobarbital (Phenobarbital 15 Mg Tablet) 45 mg PO BID [facility]; Protocol Stop: 09/11/23 21:01 Last Admin: 09/11/23 09:00 Dose: 45 mg Documented By: EFRAIN Phenobarbital (Phenobarbital 30 Mg Tablet) 30 mg PO BID [facility]; Protocol Stop: 09/13/23 21:01 Phenobarbital (Phenobarbital 15 Mg Tablet) 15 mg PO DAILY [facility]; Protocol Stop: 09/15/23 09:01 Senna (Sennosides 8.6 Mg Tablet) 17.2 mg PO BEDTIME PRN PRN Reason: Constipation Labs 09/11/23 06:49 09/11/23 06:49 Labs: Laboratory Results - last 24 hr 09/11/23 06:49 MCV 75.8 L MCH 25.1 L MCHC 33.2 RDW 15.4 Plt Count 124 L MPV 11.3 Immature Gran % (Auto) 0.4 Neut % (Auto) 72.0 Lymph % (Auto) 18.9 L [place] % (Auto) 5.9 Eos % (Auto) 2.3 Baso % (Auto) 0.5 Lymph # (Auto) 1.5 [place] # (Auto) 0.5 Eos # (Auto) 0.2 Baso # (Auto) 0.0 Abs Immat Gran (auto) 0.03 Absolute Neuts (auto) 5.7 Absolute Nucleated RBC 0.000 Nucleated RBC % (auto) 0.0 Anion Gap 11 L Estim Creat Clear Calc 104.8 Estimated GFR > 60 Fasting Glucose 95 Calcium 9.0 Phosphorus 3.1 Magnesium 1.8 Total Bilirubin 0.5 AST 70 H ALT 26 Alkaline Phosphatase 64 Total Creatine Kinase 4168 H Total Protein 6.7 Albumin 3.6 Assessment and Plan (1) Alcohol withdrawal: Status: Acute (2) New onset seizure: Status: Acute Plan This is a 48-year-old male with history of alcohol dependence presents to the ED earlier today for evaluation of new onset seizure activity. The patient denies any history of seizures. No family history of epileptic seizure disorder. He reports he does drink between 1-2 pt of bourbon on a daily basis and has been trying to cut back drinking about 4 shots daily. Acute alcohol withdrawal with etoh w/d seizure -CIWA 0 -continue phenobarbital per protocol -IV thiamine/po folic acid Seen by addiction Medicine, defers resources at this time Acute hypomagnesemia/hypophosphatemia/hypokalemia Improved with replacement Thrombocytopenia Likely due to alcohol use Follow CBC Rhabdomyolysis likely related to seizure CPK trending up as well as AST Renal function stable IVF follow CPK and LFTs in a.m. Lovenox Full code Patient requires ongoing hospitalization for phenobarb protocol secondary to alcohol withdrawal and repletion of divalents Quality Stroke Does the patient have a stroke diagnosis?: No VTE Prior VTE?: No VTE Risk Level:: Medical - moderate - high VTE Device Contraindication: Treatment Not Indicated VTE Drug Contraindication: N/A - Med Ordered
[2023-09-11 15:41] VITALS: BP 118/82; PULSE 85; RESP 18; TEMP 36.2; O2SAT 98
[2023-09-11 19:37] VITALS: BP 139/93; PULSE 86; RESP 18; TEMP 36.4; O2SAT 98
[2023-09-11] MEDS: hydrOXYzine HCL 25 MG TABLET PO (20:14)
[2023-09-11] MEDS: Enoxaparin Sodium 40 MG/0.4 ML SYRINGE SUBCUT (20:14)
[2023-09-11 23:04] VITALS: BP 136/93; PULSE 92; RESP 18; TEMP 36.1; O2SAT 100
[2023-09-12 04:00] VITALS: BP 117/76; PULSE 81; RESP 18; TEMP 36.6; O2SAT 98
[2023-09-12 06:31] LABS: Anion Gap 11 (12-20); Carbon Dioxide 24 mmol/L (22-29); Chloride 103 mmol/L (96-108); Potassium 3.7 mmol/L (3.3-5.1); Sodium 134 mmol/L (135-145)
[2023-09-12] MEDS: Lactated Ringers 1,000 ML 100 ML IVCONT (06:31)
[2023-09-12 06:32] LABS: Alanine Aminotransferase 37 U/L (0-40); Albumin Level 3.6 g/dL (3.5-5.0); Alkaline Phosphatase 61 U/L (39-117); Aspartate Amino Transferase 124 U/L (5-37); Bilirubin Direct 0.2 mg/dL (0.0-0.5); Bilirubin Total 0.6 mg/dL (0.0-1.0); Blood Urea Nitrogen 6 mg/dL (9-16); Creatinine Clr Calc Pharmacy 112.5; Estimated Glomerular Filt Rate > 60; Glucose Fasting 98 mg/dL (60-99); Total Protein 6.4 g/dL (6.5-8.0)
[2023-09-12 06:33] LABS: Hematocrit 37.2 % (42.0-52.0); Hemoglobin 12.2 g/dl (14.0-18.0); Mean Corpuscular HGB Conc 32.8 g/dl (31.0-36.0); Mean Corpuscular Hemoglobin 24.8 pg (27.0-33.0); Mean Corpuscular Volume 75.8 fL (80.0-98.0); Platelet Count 110 X10*3/uL (160-400); Red Blood Count 4.91 X10*6/uL (4.60-5.80); White Blood Count 6.7 X10*3/uL (4.8-10.8)
[2023-09-12 07:27] VITALS: BP 131/78; PULSE 79; RESP 20; TEMP 36.2; O2SAT 94
[2023-09-12] MEDS: Magnesium Oxide 400 MG TABLET PO (08:57)
[2023-09-12] MEDS: Nicotine 7 MG PATCH.TD24 TRANSDERMA (08:58)
[2023-09-12] MEDS: Folic Acid 1 MG TABLET PO (08:58)
[2023-09-12] MEDS: PHENobarbitaL 30 MG TABLET PO (08:58)
[2023-09-12] MEDS: Thiamine HCL 100 MG in 0.9 % Sodium Chloride 100 ML 202 MG IV (09:04)
--- NOTE | 2023-09-12 10:39 | PM.DS ---
DS: Providers Provider Date of Service: 09/12/23 Date of admission: 09/09/23 19:51 Date of discharge: 09/12/23 Primary care physician: None Physician Consults: 09/09/23 19:47 Addiction Medicine Routine Consulting Provider: Addiction Covering Reason for consultation: etoh dependence Attending physician on discharge: Nicanor Ventura Discharging clinician: Lashawn Romero DS: Diagnosis Discharge Diagnosis (1) Alcohol use disorder, severe, dependence: Status: Acute (2) Alcohol withdrawal: Status: Acute (3) New onset seizure: Status: Acute (4) Rhabdomyolysis: Status: Acute DS: Summary Hospital Course Hospital Course: From H&P on the day of admission 48-year-old male with history of alcohol dependence presents to the ED earlier today for evaluation of new onset seizure activity. The patient denies any history of seizures. No family history of epileptic seizure disorder. He reports he does drink between 1-2 pt of bourbon on a daily basis and has been trying to cut back drinking about 4 shots daily. Last drink was around 23:00 last night. He states he does sometimes experience withdrawal symptoms including tremors when not drinking but has never had an alcohol withdrawal seizure and has never developed delirium tremens. He reports smoking marijuana about 2-3 times daily but denies any illicit drug use. He does smoke about 5 cigarettes on a daily basis. He does not recall the seizure but his reproted to EMS the patient became stiff and tremulous and was foaming at the mouth. Lasted about 2-5 minutes and called ems. On arrival, pt tachycardic to 112, vitals otherwise stable. No hypoxia. No leukocytosis or anemia. Renal function and electrolyte levels normal except for magnesium 1.5 and phosphorus 1.8.. Initial lactic acid 5.4, repeat 1.2. Total CK 427. Troponin 5.8. Negative for any COVID-19, influenza, RSV. Ethyl alcohol level below detectable limits. UDS pending. CXR unremarkable. CT head negative for any acute intracranial abnormality. EKG shows sinus tachycardia, rate 102, no ST/T-wave abnormality. In the ED, given 1 mg lorazepam, 2 g IV magnesium, 1 L IV NS and initiated on phenobarbital per protocol. Acute alcohol withdrawal with etoh w/d seizure Patient was admitted for alcohol withdrawal seizure and treated with phenobarbital protocol. He was supplemented with thiamine and folic acid. He was seen by addiction medicine but deferred any resources. Acute hypomagnesemia/hypophosphatemia/hypokalemia Improved with replacement Thrombocytopenia Likely due to alcohol use. Platelets trending down Rhabdomyolysis likely related to seizure. CPK continues to trend up to 11,814 as well as AST up to 124. Renal function stable thus far. Patient elected to leave AMA from the hospital. It was discussed with both him and his at the bedside that rhabdo can cause liver dysfunction and renal failure and he was advised to remain in the hospital to continue IV fluid close monitoring of both his kidney function and liver function until they started to improve. He is awake, alert, oriented and understands the risks of leaving against medical advise and wishes to proceed. He is encouraged to return to the nearest emergency department with any new or worsening symptoms. Time Attestation Total time managing care of this patient today: 32 mintues. Discharge Coordination Time (in mins): 32 Quality: Safe Use of Opioids Does Pt have an Active Cancer Diagnosis on the Problem List?: No Quality: Stroke Does the patient have a stroke diagnosis?: No Physical Exam Vital Signs: Vital Signs: Last Vital Signs Temp 97.2 F 09/12/23 07:27 Pulse 79 09/12/23 07:27 Resp 20 09/12/23 07:27 BP 131/78 09/12/23 07:27 Pulse Ox 94 09/12/23 07:27 O2 Del Method Room Air 09/12/23 07:27 BMI result Body Mass Index 24.0 Const: General: cooperative, comfortable, no acute distress, alert and awake Nutritional Appearance: average body habitus Orientation/consciousness: patient oriented x3 Eyes: Other: abnormal eye movements (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) Resp: Effort & Inspection: normal respiratory effort, able to speak in complete sentences, no respiratory distress and no use of accessory muscles Cardio: Rate: regular rate Heart sounds: S1 normal heart sound present and S2 normal heart sound present GI: Inspection: No distended Palpation (GI): Soft to palpation and nontender Neuro: General: patient oriented x3 and moves all extremities Extrem: General: Yes no pedal edema DS: Data Data Completed and Pending Labs on day of discharge: Laboratory Results - last 24 hr 09/12/23 05:50 WBC 6.7 RBC 4.91 Hgb 12.2 L Hct 37.2 L MCV 75.8 L MCH 24.8 L MCHC 32.8 RDW 15.0 Plt Count 110 L MPV 12.0 Absolute Nucleated RBC 0.000 Nucleated RBC % (auto) 0.0 Sodium 134 L Potassium 3.7 Chloride 103 Carbon Dioxide 24 Anion Gap 11 L BUN 6 L Creatinine 0.82 Estim Creat Clear Calc 112.5 Estimated GFR > 60 Fasting Glucose 98 Calcium 9.0 Total Bilirubin 0.6 Direct Bilirubin 0.2 AST 124 H ALT 37 Alkaline Phosphatase 61 Total Creatine Kinase 58046 H Total Protein 6.4 L Albumin 3.6 Discharge Plan Discharge Anticipated Discharge Date/Time: 09/12/23 10:34 Patient Disposition: Left Against Medical Advice Discharge Diagnosis: alcohol withdrawal seizure rhabdomyolysis transaminitis Referrals: Physician,None [Primary Care Provider] - 1 Week Discharge Medications: No Action hydroxyzine pamoate 25 mg capsule 25 mg PO BEDTIME Discharge Orders: Discharge Order (Routine); Ordered 09/12/23 Ordered By: Lashawn Romero Care Plan Goals: see below Health Concerns: alcohol withdrawal seizure alcohol use disorder Rhabdomyolysis Transaminitis Plan of Treatment: You have elected to leave the hospital against medical advice. IT was recommended to continue IVF and inpatient hospital stay for close monitoring of lab values to prevent renal failure etc. Although it is not a substitute for IVF and close monitoring of your kidney function and your liver function, would recommend to stay hydrated and follow up with PCP office to repeat labs as soon as possible. Return to the nearest ED if develop new or worsening symptoms. Assessment: see discharge summary
--- NOTE | 2023-09-12 10:48 | MHC.CM.PN ---
Pt left AMA.
== END 2023-09-12 10:43 | disposition left against medical advice (07) | DRG 770 ==
LOC: HO.ED 18:09 → HO.EDOVER 20:02 → HO.IMC 09-10 14:21
PROVIDERS: Emergency Medicine Emergency Medical Services; Hospitalist; Admitting Provider Physician Assistant; Emergency Provider Emergency Medicine; Visit Provider Physician Assistant Medical
DX: F10.239 Alcohol dependence with withdrawal, unspecified (principal); E87.21 Acute metabolic acidosis; M62.82 Rhabdomyolysis; R56.9 Unspecified convulsions; E83.42 Hypomagnesemia; D69.59 Other secondary thrombocytopenia; E87.6 Hypokalemia; F17.210 Nicotine dependence, cigarettes, uncomplicated; Z71.6 Tobacco abuse counseling; Z71.41 Alcohol abuse counseling and surveillance of alcoholic; Z20.822 Contact with and (suspected) exposure to COVID-19; Z79.899 Other long term (current) drug therapy
CPT/HCPCS: 0241U; 36415; 70450; 71045; 80048; 80053; 80076; 80307; 81001; 82550; 83605; 83690; 83735; 84100; 84484; 85025; 85027; 85610; 93005; 99285; J1650; J2060; J2560; J3411; J3475; J3480; J7120

== ENCOUNTER → 2023-09-09 15:22 | Outpatient (BNV) | payer OTHER, SELFPAY | PROVIDERS: Emergency Provider Emergency Medicine; Visit Provider Internal Medicine Cardiovascular Disease | DX: R00.0 Tachycardia, unspecified (principal) | CPT/HCPCS: 93010 ==

== ENCOUNTER 2023-09-09 19:51 | Outpatient (BNV) | payer OTHER, SELFPAY | END 2023-09-11 12:20 | PROVIDERS: Admitting Provider Physician Assistant; Emergency Provider Emergency Medicine; Visit Provider Internal Medicine Cardiovascular Disease | DX: I45.81 Long QT syndrome (principal) | CPT/HCPCS: 93010 ==

== ENCOUNTER → 2023-09-09 19:51 | Outpatient (BNV) | payer OTHER, SELFPAY | PROVIDERS: Admitting Provider Physician Assistant; Emergency Provider Emergency Medicine; Visit Provider Physician Assistant | DX: F10.939 Alcohol use, unspecified with withdrawal, unspecified (principal); R56.9 Unspecified convulsions; M62.82 Rhabdomyolysis | CPT/HCPCS: 99223; 99233; 99239 ==

== ENCOUNTER → 2023-09-09 19:51 | Outpatient (BNV) | payer OTHER, SELFPAY | PROVIDERS: Admitting Provider Physician Assistant; Emergency Provider Emergency Medicine; Visit Provider Nurse Practitioner Psychiatric/Mental Health | DX: F10.20 Alcohol dependence, uncomplicated (principal) | CPT/HCPCS: 99221; 99232 ==

== ENCOUNTER 2025-06-24 12:42 | Inpatient (IN) | payer OTHER, SELFPAY ==
[2025-06-24] VITALS (7 sets, daily range): BP systolic 117–166; BP diastolic 78–95; PULSE 79–116; RESP 13–20; TEMP 36.2–36.7; O2SAT 95–99; BMI 24.7; BMI 24.9
--- NOTE | ~2025-06-24 | MR_ITS ---
CLINICAL HISTORY: New onset seizure Exam: Nonenhanced MRI brain. Comparison: CT brain 09/09/2023. Findings: There is no cerebral edema or mass effect. White matter signal intensities are maintained. Diffusion weighted imaging reveals no restricted diffusion or MR evidence of acute ischemia. Susceptibility weighted imaging reveals no susceptibility artifact or evidence of intracranial hemorrhage. No sellar or parasellar lesions. Ventricular size and configuration are within normal limits. Cerebral cisterns are preserved. No significant signal abnormality seen within the paranasal sinuses or mastoid air cells. Preserved flow signal voids are present within visualized intracranial vasculature. Impression: 1. No acute intracranial abnormalities. This document has been electronically signed by: Jadon Milian MD on 06/24/2025 19:35:35
--- NOTE | 2025-06-24 12:56 | ECG_ITS ---
Test Reason : SEZIURE Blood Pressure : */* mmHG Vent. Rate : 108 BPM Atrial Rate : 108 BPM P-R Int : 154 ms QRS Dur : 84 ms QT Int : 370 ms P-R-T Axes : 56 -4 50 degrees QTcB Int : 495 ms Sinus tachycardia Otherwise normal ECG When compared with ECG of 11-Sep-2023 12:20, No significant change was found Referred By: Generic ED Physician Electronically Signed By: ADAN KEATING MD
--- NOTE | 2025-06-24 12:58 | ED.GENADULT ---
HPI - General Adult General Chief complaint: Seizure Stated complaint: ETOH Time Seen by Provider: 06/24/25 12:57 Source: patient and EMS Mode of arrival: EMS Limitations: no limitations History of Present Illness ED Provider: Shanna Gary PA-C HPI narrative: Patient is a 50 year old male with a history of alcohol withdrawal with seizures presenting to the emergency department today after a seizure. Patient states that he has not had any alcohol over the last 2 days and today he had a seizure. Patient denies any other complaints at this time. Related Data Home Medications ?Medication ?Instructions ?Recorded ?Confirmed hydroxyzine pamoate 25 mg capsule 25 mg PO BEDTIME 09/09/23 09/09/23 Allergies Allergy/AdvReac Type Severity Reaction Status Date / Time No Known Allergies (No Known Allergy Verified 06/24/25 12:54 Allergies*) Review of Systems Constitutional: Constitutional: Reports as per HPI Eyes: Eyes: Reports as per HPI ENT: Reports as per HPI Cardiovascular: Cardiovascular: Reports as per HPI Respiratory: Respiratory: Reports as per HPI Gastrointestinal: Gastrointestinal: Reports as per HPI Genitourinary: Genitourinary: Reports as per HPI Musculoskeletal: Musculoskeletal: Reports as per HPI Integumentary/Breasts: Skin/Breast: Reports as per HPI Neurologic: Reports as per HPI Psychiatric: Psychiatric: Reports as per HPI Endocrine: Endocrine: Reports as per HPI Hematologic/Lymphatic: Hematologic/Lymphatic: Reports as per HPI Allergic/Immunologic: Allergic/Immunologic: Reports as per HPI PMF Past Medical History Attestation statement: The following information was validated with the patient. Source: old records reviewed and nursing notes reviewed Medical History Albinism Alcohol use disorder Social History Social History Household Members: Spouse and Children Housing: House Do you presently have visiting nurse or other home services: No Alcohol intake: current Alcohol intake frequency: 3 or more drinks per day Alcohol type: beer and hard liquor Patient Tobacco Use Status: Current everyday Tobacco user Tobacco use type: Cigarette and Cigar Substance Use Type: Marijuana Advance Directives: No Advance Directives Information Provided: No service: No Physical Exam ED Vital Signs: Vital Signs - 24 hr 06/24/25 12:47 06/24/25 13:48 06/24/25 14:58 Temperature 98.1 F 98.0 F Pulse Rate 113 H 91 82 Respiratory Rate 18 18 16 Blood Pressure 144/95 H 144/95 H 117/78 Pulse Oximetry 96 95 97 Oxygen Delivery Method Room Air Room Air Room Air 06/24/25 16:03 Temperature 97.6 F Pulse Rate 82 Respiratory Rate 18 Blood Pressure 129/87 Pulse Oximetry 98 Oxygen Delivery Method Room Air BMI result Body Mass Index 24.7 Const General: cooperative, no acute distress, alert and awake Nutritional Appearance: well nourished Orientation/consciousness: patient oriented x3 HENMT Head: Yes normal to inspection and Yes atraumatic Ears: hearing grossly normal bilaterally and external ears normal General nose exam: Normal external nose present, no nasal discharge noted and no epistaxis Face and sinus: Yes normal facial exam, No abrasion and No laceration Mouth: Normal oral and palatal mucosa present, no drooling and no muffled voice Eyes General: appearance normal, both eyes and all related structures Periorbital: periorbital findings normal Eyelids: Yes eyelids normal Conjunctivae: conjunctivae normal Pupils: Equal, round and reactive pupils present EOM: EOMs intact bilaterally Neck Neck: Yes normal visual inspection and Yes full ROM Resp Effort & Inspection: normal respiratory effort and able to speak in complete sentences Neuro General: patient oriented x3, moves all extremities and CN's II-XI intact bilaterally Cranial nerves: Yes Equal, round and reactive pupils present Cognition (Neuro): normal cognition Extrem General: Yes normal to inspection, Yes full ROM and Yes capillary refill normal Psych Appearance: grossly normal Mental Status: mental status grossly normal Affect: normal affect Attitude: cooperative Thought process: Normal thought process present Thought content: Normal thought content present Insight: Good insight present (Psych) Medications Administered Generic Name Dose Route Start Last Admin Trade Name Freq PRN Reason Stop Dose Admin Phenobarbital Sodium 212 mg 06/24/25 16:00 06/24/25 16:02 Phenobarbital Sodium 130 Mg/Ml Vial Im Q3hx2 IM 06/24/25 19:01 212 mg Q3H DONNA Administration Protocol Discontinued Medications Generic Name Dose Route Start Last Admin Trade Name Freq PRN Reason Stop Dose Admin Diazepam 2.5 mg 06/24/25 13:01 06/24/25 13:45 Diazepam 10 Mg/2 Ml Cartridge IVPUSH 06/24/25 13:02 2.5 mg STAT STA Administration Sodium Chloride 1,000 mls @ 999 mls/hr 06/24/25 13:15 06/24/25 14:57 Ns IV 06/24/25 14:15 Infused .Q1H1M DONNA Infusion Sodium Chloride 1,000 mls @ 999 mls/hr 06/24/25 13:45 06/24/25 14:57 Ns IV 06/24/25 14:45 999 mls/hr .Q1H1M DONNA Administration Phenobarbital Sodium 283 mg 06/24/25 13:00 06/24/25 13:45 Phenobarbital Sodium 130 Mg/Ml Im Once IM 06/24/25 13:01 283 mg ONCE ONE Administration Protocol Medical Decision Making Medical Decision Making MDM Narrative: Patient is a 50 year old male with a history of alcohol withdrawal with seizures presenting to the emergency department today after a seizure. Patient's physical exam was as noted in the physical exam portion of this note. Patient's blood work showed an initial lactic of 12.1 that dropped to 1.5 after 2 liters of NS. LFTs elevated with T. Bili at 1.4, AST 126, ALT 108. Ammonia elevated at 74. Patient's EKG showed sinus tachycardia with no obvious evidence of ischemia or infarct. Given patient's seizure prior to arrival, he was given 2.5mg of valium and started on the alcohol withdrawal phenobarb protocol. I spoke with the hospitalist team who agreed to admission for alcohol withdrawal. I explained my physical exam findings as well as all test results to the patient. I answered all questions asked by the patient. Patient verbalized agreement and understanding with this treatment plan and admission. Differential Diagnosis Differential Diagnoses: The differential diagnosis associated with the presentation includes Alcohol withdrawal seizure Alcohol use Alcohol abuse Admission/Observation Consideration of admission/observation: Escalation of care including admission/observation considered Patient admitted as noted in the MDM Rationale portion of this note. Consult Healthcare Provider Management of the patient was discussed with: Hospitalist (agreed to admission as noted in the MDM Rationale portion of this note.) Lab Data [facility] Lab Attestation statement: I reviewed the patient's lab results. My interpretation of these results are in the MDM Rationale portion of this note. 06/24/25 13:07 06/24/25 13:07 Labs: Lab Results 06/24/25 06/24/25 06/24/25 Range/Units 13:06 13:07 13:12 WBC 9.2 (4.8-10.8) X10*3/uL RBC 5.22 (4.60-5.80) X10*6/uL Hgb 12.8 L (14.0-18.0) g/dl Hct 39.7 L (42.0-52.0) % MCV 76.1 L (80.0-98.0) fL MCH 24.5 L (27.0-33.0) pg MCHC 32.2 (31.0-36.0) g/dl RDW 17.1 H (11.0-16.0) % Plt Count 205 D (160-400) X10*3/uL MPV 10.9 (9.4-12.4) fL Immature Gran % (Auto) 0.3 (0.0-0.4) % Neut % (Auto) 77.6 H (45-73) % Lymph % (Auto) 14.0 L (20-40) % [place] % (Auto) 7.1 (2-11) % Eos % (Auto) 0.1 (0-4) % Baso % (Auto) 0.9 (0-2) % Lymph # (Auto) 1.3 (1.2-4.9) X10*3/uL [place] # (Auto) 0.7 (0.1-1.2) X10*3/uL Eos # (Auto) 0.0 (0.0-0.4) X10*3/uL Baso # (Auto) 0.1 (0.0-0.2) X10*3/uL Abs Immat Gran (auto) 0.03 (0.00-0.03) X10*3/uL Absolute Neuts (auto) 7.1 (2.0-8.3) x10*3/uL Absolute Nucleated RBC 0.000 (0.0-0.012) X10*3/uL Nucleated RBC % (auto) 0.0 (0.0-0.2) /100WBC VBG pH 7.31 L (7.32-7.43) VBG pCO2 27 mmHg VBG pO2 75 mmHg VBG HCO3 14 L (22-26) mmol/L VBG O2 Saturation 91.0 % VBG Base Excess -10.3 mmol/L Sodium 134 L (135-145) mmol/L Potassium 3.6 (3.3-5.1) mmol/L Chloride 96 (96-108) mmol/L Carbon Dioxide 13 L (22-29) mmol/L Anion Gap 29 H (12-20) BUN 13 (9-16) mg/dL Creatinine 1.12 (0.5-1.4) mg/dL Estim Creat Clear Calc 80.6 Estimated GFR > 60 Random Glucose 102 (60-115) mg/dL Lactic Acid 12.1 H* (0.5-2.0) mmol/L Lactic Acid F/U @ 2Hr (0.5-2.0) mmol/L Calcium 9.5 (8.4-10.2) mg/dL Magnesium 1.8 (1.6-2.6) mg/dL Total Bilirubin 1.4 H (0.0-1.0) mg/dL AST 126 H (5-37) U/L ALT 108 H (0-40) U/L Alkaline Phosphatase 58 (39-117) U/L Ammonia 74 H (13-55) umol/L Total Protein 7.9 (6.5-8.0) g/dL Albumin 4.8 (3.5-5.0) g/dL Ethyl Alcohol < 10 mg/dL 06/24/25 Range/Units 16:21 WBC (4.8-10.8) X10*3/uL RBC (4.60-5.80) X10*6/uL Hgb (14.0-18.0) g/dl Hct (42.0-52.0) % MCV (80.0-98.0) fL MCH (27.0-33.0) pg MCHC (31.0-36.0) g/dl RDW (11.0-16.0) % Plt Count (160-400) X10*3/uL MPV (9.4-12.4) fL Immature Gran % (Auto) (0.0-0.4) % Neut % (Auto) (45-73) % Lymph % (Auto) (20-40) % [place] % (Auto) (2-11) % Eos % (Auto) (0-4) % Baso % (Auto) (0-2) % Lymph # (Auto) (1.2-4.9) X10*3/uL [place] # (Auto) (0.1-1.2) X10*3/uL Eos # (Auto) (0.0-0.4) X10*3/uL Baso # (Auto) (0.0-0.2) X10*3/uL Abs Immat Gran (auto) (0.00-0.03) X10*3/uL Absolute Neuts (auto) (2.0-8.3) x10*3/uL Absolute Nucleated RBC (0.0-0.012) X10*3/uL Nucleated RBC % (auto) (0.0-0.2) /100WBC VBG pH (7.32-7.43) VBG pCO2 mmHg VBG pO2 mmHg VBG HCO3 (22-26) mmol/L VBG O2 Saturation % VBG Base Excess mmol/L Sodium (135-145) mmol/L Potassium (3.3-5.1) mmol/L Chloride (96-108) mmol/L Carbon Dioxide (22-29) mmol/L Anion Gap (12-20) BUN (9-16) mg/dL Creatinine (0.5-1.4) mg/dL Estim Creat Clear Calc Estimated GFR Random Glucose (60-115) mg/dL Lactic Acid (0.5-2.0) mmol/L Lactic Acid F/U @ 2Hr 1.5 (0.5-2.0) mmol/L Calcium (8.4-10.2) mg/dL Magnesium (1.6-2.6) mg/dL Total Bilirubin (0.0-1.0) mg/dL AST (5-37) U/L ALT (0-40) U/L Alkaline Phosphatase (39-117) U/L Ammonia (13-55) umol/L Total Protein (6.5-8.0) g/dL Albumin (3.5-5.0) g/dL Ethyl Alcohol mg/dL Independent Interpretation I performed an independent interpretation of an: EKG Interpretation: I independently interpreted this EKG and am in agreement with the below findings: Vent. Rate: 108 BPM Atrial Rate: 108 BPM P-R Int: 154 ms QRS Dur: 84 ms QT Int: 370 ms P-R-T Axes: 56 -4 50 degrees QTcB Int: 495 ms Sinus tachycardia 06/24/25 1516 Independent Historian Clinical information obtained from an independent historian. History obtained from or confirmed by: EMS (EMS provided additional history and confirmed the history provided by the patient. ) Critical Care Time Critical Care Time Critical Care Time: Yes Total Critical Care Time: 49 Attestation: I spent 49 minutes of Critical Care Time with this patient. This does not include time spent on separately reported billable procedures. Discharge Plan Discharge Clinical Impression: Alcohol withdrawal, Alcohol withdrawal seizure Patient Disposition: Admitted As Inpatient Print Language: French
[2025-06-24 13:11] LABS: MANUAL DIFF FLAG NO
[2025-06-24 13:16] LABS: Venous Blood Gas Refer to POC result
[2025-06-24 13:17] LABS: VBG HCO3 14 mmol/L (22-26); VBG O2 % Saturation 91.0 %
[2025-06-24 13:18] LABS: Hematocrit 39.7 % (42.0-52.0); Hemoglobin 12.8 g/dl (14.0-18.0); Imm Gran Abs Auto 0.03 X10*3/uL (0.00-0.03); Imm Gran Pct Auto 0.3 % (0.0-0.4); Lymphocytes Absolute Auto 1.3 X10*3/uL (1.2-4.9); Mean Corpuscular HGB Conc 32.2 g/dl (31.0-36.0); Mean Corpuscular Hemoglobin 24.5 pg (27.0-33.0); Mean Corpuscular Volume 76.1 fL (80.0-98.0); NRBC Abs Auto 0.000 X10*3/uL (0.0-0.012); NRBC Pct Auto 0.0 /100WBC (0.0-0.2); Platelet Count 205 X10*3/uL (160-400); Red Blood Count 5.22 X10*6/uL (4.60-5.80); White Blood Count 9.2 X10*3/uL (4.8-10.8)
[2025-06-24 13:20] LABS: Ammonia 74 umol/L (13-55)
--- OUTSIDE RECORDS SUMMARY | 2025-06-24 13:26 | XMS_ITS | Clinical Summary ---
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 Encounters Date Type Department Care Team Description 05/09/2025 Outside Procedure [facility] [address] [place] [address] Ronny, Lory, OD Myopia of both eyes (Primary Dx) from Last 3 Months Immunizations Immunization Administration Dates Next Due Pfizer Covid-19 Vaccine 12+ 12/09/2020, Family History Medical History Relation Name Comments Glaucoma Neg Hx Social History Tobacco Use Types Packs/Day Years Used Date Smoking Tobacco: Some Days Cigarettes Smokeless Tobacco: Never Tobacco Cessation:Ready to Q uit: Not Asked; Counseling Given: Not Answered Sex and Gender Information Value Date Recorded Sex Assigned at Male 04/29/2022 10:31 AM EDT Legal Sex Male 10:31 AM EDT Gender Identity Male 04/29/2022 10:31 AM EDT Sexual Orientation Straight 04/29/2022 10 :31 AM EDT Plan of Treatment Health Maintenance Due Date Last Done Comments CT Colonography 1977 Colonoscopy 1977 Colorectal Cancer Screening 1977 Depression Screening 1977 FIT DNA/Cologuard 1977 FIT 1977 FOBT 1977 HIV Screening 1977 Lipid Panel 1977 SDOH Screening 1977 Sigmoidoscopy 1977 Disability Screening 1977 Alcohol/Substance Use Screening 1989 Family Planning (PISQ) 1992 Hepatitis C Screening 1995 DTaP/Tdap/Td Vaccines (1 - Tdap) 1996 Hepatitis B Vaccines (1 of 3 - 19+ 3-dose series) 1996 Pneumococcal Vaccine: Pediatrics (0 to 5 Years) and At-Risk Patients (6 to 49) Years (1 of 2 - PCV) 1996 Tobacco Screening 02/23/2025 02/24/2024 COVID-19 Vaccine (3 - 2024-2 6 season) 2025 12/09/2020, 11/18/2020 Influenza Vaccine (#1) 2025 Zoster Vaccines (1 of 2) 2027 RSV Patients and Patients Aged 60 years or older (1 - 1-dose 75+ series) 2052 HIB Vaccines Aged Out No longer eligi ble based on patient's age to complete this topic HPV Vaccines Aged Out No longer eligi ble based on patient's age to complete this topic Hepatitis A Vaccines Aged Out No long er eligible based on patient's age to complete this topic IPV Vaccines Aged Out No longer eligi ble based on patient's age to complete this topic Meningococcal B Vaccine Aged Out No l onger eligible based on patient's age to complete this topic Meningococcal Vaccine Aged Out No amanda deepika eligible based on patient's age to complete this topic RSV under 20 months Aged Out No longe r eligible based on patient's age to complete this topic Rotavirus Vaccines Aged Out No longer eligible based on patient's age to complete this topic Insurance [facility]
[2025-06-24 13:29] LABS: Alanine Aminotransferase 108 U/L (0-40); Albumin Level 4.8 g/dL (3.5-5.0); Alkaline Phosphatase 58 U/L (39-117); Anion Gap 29 (12-20); Aspartate Amino Transferase 126 U/L (5-37); Blood Urea Nitrogen 13 mg/dL (9-16); Calcium 9.5 mg/dL (8.4-10.2); Carbon Dioxide 13 mmol/L (22-29); Chloride 96 mmol/L (96-108); Creatinine Clr Calc Pharmacy 80.6; Estimated Glomerular Filt Rate > 60; Magnesium 1.8 mg/dL (1.6-2.6); Potassium 3.6 mmol/L (3.3-5.1); Sodium 134 mmol/L (135-145); Total Protein 7.9 g/dL (6.5-8.0)
[2025-06-24] MEDS: PHENobarbitaL sodium 130 MG/ML IM ONCE 283 MG IM (13:45)
[2025-06-24] MEDS: diazePAM 10 MG/2 ML CARTRIDGE 2.5 MG IVPUSH (13:45)
[2025-06-24 15:10] LABS: Reflex Lactate? Lactic Acid Added
--- NOTE | 2025-06-24 15:46 | PC.NURSE ---
No Sz activity since arrival to ED.
[2025-06-24] MEDS: PHENobarbitaL sodium 130 MG/ML VIAL IM Q3Hx2 212 MG IM ×2 (16:02→20:53)
[2025-06-24 16:44] LABS: ~Lactic Acid-LAB USE ONLY 1.5 mmol/L (0.5-2.0)
--- NOTE | 2025-06-24 17:24 | PM.IMHP ---
History of Present Illness Date of Service: 06/24/25 Chief Complaint: Alcohol withdrawal seizure 50-year-old male with a history withdrawal seizure report after witnessed seizure. When questioned patient states seizure was 2 days ago. States he had to nips prior to seizure; has not been drinking in excess prior to that per his account. Patient denies a family history of seizures but does recount 2 episodes of head trauma in the last 4 months Review of Systems Review of Systems: Denies chest pain Denies shortness of breath Denies nausea vomiting diarrhea Denies fever chills PMF Medical History Albinism Alcohol use disorder Social History Household Members: Spouse and Children Housing: House Do you presently have visiting nurse or other home services: No Alcohol intake: current Alcohol intake frequency: 3 or more drinks per day Alcohol type: beer and hard liquor Patient Tobacco Use Status: Current everyday Tobacco user Tobacco use type: Cigarette and Cigar Substance Use Type: Marijuana Advance Directives: No Advance Directives Information Provided: No service: No Meds Allergies Allergy/AdvReac Type Severity Reaction Status Date / Time No Known Allergies (No Known Allergy Verified 06/24/25 12:54 Allergies*) Active Medications: Current Medications Acetaminophen (Acetaminophen 325 Mg Tablet) 650 mg PO Q6H PRN PRN Reason: Pain, Mild 1-3,fever,headache Calcium Carbonate (Calcium Carbonate 750 Mg Tab.Chew) 750 mg PO Q4H PRN PRN Reason: Heartburn Enoxaparin Sodium (Enoxaparin Sodium 40 Mg/0.4 Ml Syringe) 40 mg SUBCUT Q24H DONNA Magnesium Hydroxide (Milk Of Magnesia 30 Ml Oral.Susp) 30 ml PO DAILY PRN PRN Reason: Constipation Melatonin (Melatonin 3 Mg Tablet) 6 mg PO BEDTIME PRN PRN Reason: Insomnia Pharmacy Consult (Consult Rx Etoh Phenob Im/Po) 1 each MISCELLANE ONCE PRN; Protocol PRN Reason: Consult order Phenobarbital (Phenobarbital 15 Mg Tablet) 45 mg PO BID DONNA; Protocol Stop: 06/26/25 21:01 Phenobarbital (Phenobarbital 15 Mg Tablet) 15 mg PO BID DONNA; Protocol Stop: 06/28/25 21:01 Phenobarbital (Phenobarbital 15 Mg Tablet) 15 mg PO DAILY DONNA; Protocol Stop: 06/30/25 09:01 Phenobarbital Sodium (Phenobarbital Sodium 130 Mg/Ml Vial Im Q3hx2) 212 mg IM Q3H DONNA; Protocol Stop: 06/24/25 19:01 Last Admin: 06/24/25 16:02 Dose: 212 mg Sodium Chloride (0.9 % Sodium Chloride Flush 3 Ml Syringe) 3 ml [facility]USH [facility] Home Medications ?Medication ?Instructions ?Recorded ?Confirmed ?Last Taken ?Type hydroxyzine pamoate 25 mg capsule 25 mg PO BEDTIME 09/09/23 09/09/23 Unknown History Physical Exam Vital Signs and Narrative: Vital Signs: Last Vital Signs Temp 97.6 F 06/24/25 16:03 Pulse 82 06/24/25 16:03 Resp 18 06/24/25 16:03 BP 129/87 06/24/25 16:03 Pulse Ox 98 06/24/25 16:03 O2 Del Method Room Air 06/24/25 16:03 BMI result Body Mass Index 24.7 Const: Other: Awake alert no acute distress Resp: Other: Clear to auscultation bilaterally no rales rhonchi or wheezes Cardio: Other: No S4; positive S1-S2; no S3 murmurs rubs or gallops GI: Other: Soft nontender nondistended normoactive bowel sounds Neuro: Other: Cranial nerves 2-12 grossly intact as tested. Motor is 5/5 all extremities; sensation intact. Cognition appropriate Extrem: Other: No edema bilaterally Results Labs 06/24/25 13:07 06/24/25 13:07 Labs: Laboratory Results - last 24 hr 06/24/25 06/24/25 06/24/25 13:06 13:07 13:12 MCV 76.1 L MCH 24.5 L MCHC 32.2 RDW 17.1 H Plt Count 205 D MPV 10.9 Immature Gran % (Auto) 0.3 Neut % (Auto) 77.6 H Lymph % (Auto) 14.0 L [place] % (Auto) 7.1 Eos % (Auto) 0.1 Baso % (Auto) 0.9 Lymph # (Auto) 1.3 [place] # (Auto) 0.7 Eos # (Auto) 0.0 Baso # (Auto) 0.1 Abs Immat Gran (auto) 0.03 Absolute Neuts (auto) 7.1 Absolute Nucleated RBC 0.000 Nucleated RBC % (auto) 0.0 VBG pH 7.31 L VBG pCO2 27 VBG pO2 75 VBG HCO3 14 L VBG O2 Saturation 91.0 VBG Base Excess -10.3 Anion Gap 29 H Estim Creat Clear Calc 80.6 Estimated GFR > 60 Random Glucose 102 Lactic Acid 12.1 H* Lactic Acid F/U @ 2Hr Calcium 9.5 Magnesium 1.8 Total Bilirubin 1.4 H AST 126 H ALT 108 H Alkaline Phosphatase 58 Ammonia 74 H Total Protein 7.9 Albumin 4.8 Ethyl Alcohol < 10 06/24/25 16:21 MCV MCH MCHC RDW Plt Count MPV Immature Gran % (Auto) Neut % (Auto) Lymph % (Auto) [place] % (Auto) Eos % (Auto) Baso % (Auto) Lymph # (Auto) [place] # (Auto) Eos # (Auto) Baso # (Auto) Abs Immat Gran (auto) Absolute Neuts (auto) Absolute Nucleated RBC Nucleated RBC % (auto) VBG pH VBG pCO2 VBG pO2 VBG HCO3 VBG O2 Saturation VBG Base Excess Anion Gap Estim Creat Clear Calc Estimated GFR Random Glucose Lactic Acid Lactic Acid F/U @ 2Hr 1.5 Calcium Magnesium Total Bilirubin AST ALT Alkaline Phosphatase Ammonia Total Protein Albumin Ethyl Alcohol Assessment and Plan (1) Alcohol withdrawal: Qualifiers: Complication of substance-induced condition: uncomplicated Qualified Code(s): F10.930 - Alcohol use, unspecified with withdrawal, uncomplicated Status: Acute (2) New onset seizure: Status: Acute Plan 50-year-old male with known history of alcohol abuse presents after seizure which was approximately 2 days after he drank approximately 60 oz of alcohol by his recount. He states that he drinks intermittently now and does not drink continuously. He does have a history of recent head trauma 1. Alcohol withdrawal -phenobarb protocol -observe on CIWA scale -addiction Medicine consult 2. New onset seizure -story/amount of alcohol inconsistent with withdrawal -given history of recent head trauma check MRI/EEG -further plans based on forthcoming data Full code Essiex Patient still require at least 2 midnights inpatient stay to complete phenobarb protocol and workup new onset seizures. This can not be achieved at a lower for acute [facility] Quality Stroke Does the patient have a stroke diagnosis?: No VTE Prior VTE?: No VTE Risk Level:: Medical - moderate - high VTE Device Contraindication: Treatment Not Indicated VTE Drug Contraindication: N/A - Med Ordered
--- NOTE | 2025-06-24 17:57 | PHA.MEDREC ---
Pharmacy Consult ? Medication Reconciliation Pharmacy has completed the medication reconciliation. Patient confirmed he is not taking any medications, otc, supplements at home.
--- NOTE | 2025-06-24 20:56 | HO.NURTONUR ---
Pt biba after having a witnessed seizure that lasted over one minute. Per EMS pt was post ictal during transport but cleared upon arrival to the ED. Pt is a daily drinker a few nips a day and reports last drink (2 nips) was 2 dyas ago because he had to walk in the cold. Pt has hx of withdrawal seizures and reports 2 episodes of head trauma in the last 4 months. Pt being admitted for new onset of seizure and alcohol withdrawal. pt started on phenobarb protocol, Q4h CIWA last score being 0. Pt caox3 able to make his needs known and ambulates with steady gait. Pt has 20GIV in LAC and has been medicated per mar. Labs anion gap- 29 lactic- 12.1 --> 1.5 total bili- 1.4 Ast- 126 Alt- 108 Amonia- 74 TCK- 586
[2025-06-25] MEDS: 0.9 % Sodium Chloride Flush 3 ML SYRINGE IVFLUSH ×2 (01:06→08:37)
[2025-06-25 03:21] VITALS: BP 109/65; PULSE 80; RESP 18; TEMP 37.2; O2SAT 95
[2025-06-25 07:08] LABS: Hematocrit 35.2 % (42.0-52.0); Hemoglobin 11.6 g/dl (14.0-18.0); Imm Gran Abs Auto 0.02 X10*3/uL (0.00-0.03); Imm Gran Pct Auto 0.4 % (0.0-0.4); Lymphocytes Absolute Auto 1.7 X10*3/uL (1.2-4.9); MANUAL DIFF FLAG SCAN; Mean Corpuscular HGB Conc 33.0 g/dl (31.0-36.0); Mean Corpuscular Hemoglobin 24.7 pg (27.0-33.0); Mean Corpuscular Volume 74.9 fL (80.0-98.0); NRBC Abs Auto 0.000 X10*3/uL (0.0-0.012); NRBC Pct Auto 0.0 /100WBC (0.0-0.2); PLT CLUMP 1; Red Blood Count 4.70 X10*6/uL (4.60-5.80); SCAN SMEAR FLAG 1
[2025-06-25 07:09] LABS: White Blood Count 5.5 X10*3/uL (4.8-10.8)
[2025-06-25 07:24] LABS: Platelet Count 141 X10*3/uL (160-400)
[2025-06-25 07:48] LABS: Alanine Aminotransferase 83 U/L (0-40); Albumin Level 3.7 g/dL (3.5-5.0); Alkaline Phosphatase 45 U/L (39-117); Anion Gap 13 (12-20); Aspartate Amino Transferase 134 U/L (5-37); Blood Urea Nitrogen 8 mg/dL (9-16); Calcium 8.5 mg/dL (8.4-10.2); Carbon Dioxide 24 mmol/L (22-29); Chloride 101 mmol/L (96-108); Creatinine Clr Calc Pharmacy 117.3; Estimated Glomerular Filt Rate > 60; Potassium 2.8 mmol/L (3.3-5.1); Sodium 135 mmol/L (135-145); Total Protein 6.3 g/dL (6.5-8.0)
[2025-06-25 07:49] VITALS: BP 149/98; PULSE 82; RESP 18; TEMP 36.7; O2SAT 97
[2025-06-25] MEDS: PHENobarbital 15 MG TABLET 45 MG PO (08:34)
--- NOTE | 2025-06-25 09:30 | MHC.CM.PN ---
DX SEIZURE ETOH Patient lives with others, non family members. + kids staying [facility] [place] [facility]. Community resource information and [facility] PCP Pamphlet provided Patient is independent with all functional mobility NO DME NO Services DP Return home self care with Community resource information provided by CM, and Recovery team Patient will arrange for private transportation home. He may need assist, C shuttle vs PVTA
[2025-06-25 11:56] VITALS: BP 139/91; PULSE 78; RESP 18; TEMP 36.2; O2SAT 97
[2025-06-25] MEDS: Potassium Chloride ER 20 MEQ TAB.ER.PRT 40 MEQ PO (12:39)
--- NOTE | 2025-06-25 15:01 | MHC.RECOVRN ---
Consult placed to Addiction Medicine for pt admitted after experiencing a witnessed seizure at home. Pt has PMH of etoh withdrawal seizures and a consult was placed to Addiction Medicine. On approach pt was sitting in bed in no apparent distress. No diaphoresis or restlessness noted. Pt denies experiencing withdrawal symptoms and CIWA scores have remained 1 or less. Recovery evaluation completed. Please see for additional details. Pt does not feel his alcohol or marijuana use is problematic despite history of alcohol withdrawal seizures and declined intervention, MICHELLE, or outpt treatment relatede to alcol use at this time. Pt provided education, resources, and was provided contact information for ACS team should questions or concerns arise. ACS team available as needed
[2025-06-25 15:45] VITALS: BP 137/94; PULSE 88; RESP 18; TEMP 36.7; O2SAT 100
--- NOTE | 2025-06-25 15:47 | P.DS_ITS ---
DS: Providers Provider Date of admission: 06/24/25 16:53 Date of discharge: 06/25/25 Primary care physician: None Physician Consults: 06/24/25 17:33 Addiction Medicine Provider Routine Consulting Provider: Addiction Covering Reason for consultation: Alcohol use disorder Has provider been notified: No DS: Diagnosis Discharge Diagnosis (1) Alcohol withdrawal: Status: Acute (2) New onset seizure: Status: Acute DS: Summary Hospital Course Hospital Course: 50-year-old male with a history withdrawal seizure report after witnessed seizure. When questioned patient states seizure was 2 days ago. States he had to nips prior to seizure; has not been drinking in excess prior to that per his account. Patient denies a family history of seizures but does recount 2 episodes of head trauma in the last 4 months Hospital Course Patient admitted to telemetry where monitor failed to demonstrate acute dysrhythmias. CIWA remained 0 throughout the hospitalization. Seen by addiction Medicine deemed appropriate for discharge. He will follow up as outpatient obtain new PCP Time Attestation Discharge Coordination Time (in mins): 35 Quality: Safe Use of Opioids Does Pt have an Active Cancer Diagnosis on the Problem List?: No Quality: Stroke Does the patient have a stroke diagnosis?: No Physical Exam Vital Signs: Vital Signs: Last Vital Signs Temp 98.0 F 06/25/25 15:45 Pulse 88 06/25/25 15:45 Resp 18 06/25/25 15:45 BP 137/94 H 06/25/25 15:45 Pulse Ox 100 06/25/25 15:45 O2 Del Method Room Air 06/25/25 15:45 BMI result Body Mass Index 24.9 Const: Other: Awake alert no acute distress Resp: Other: Clear to auscultation bilaterally no rales rhonchi or wheezes Cardio: Other: No S4; positive S1-S2; no S3 murmurs rubs or gallops GI: Other: Soft nontender nondistended normoactive bowel sounds Neuro: Other: Cranial nerves 2-12 grossly intact as tested. Motor is 5/5 all extremities; se nsation intact. Cognition appropriate Extrem: Other: No edema bilaterally DS: Data Data Completed and Pending Completed studies during hospitalization [Text1]: Procedures Detoxification Services for Substance Abuse Treatment (09/09/23) Labs on day of discharge: Laboratory Results - last 24 hr 06/24/25 06/24/25 06/24/25 13:07 13:12 16:21 WBC RBC Hgb Hct MCV MCH MCHC RDW Plt Count MPV Immature Gran % (Auto) Neut % (Auto) Lymph % (Auto) Mel[place] % (Auto) Eos % (Auto) Baso % (Auto) Lymph # (Auto) Mel[place] # (Auto) Eos # (Auto) Baso # (Auto) Abs Immat Gran (auto) Absolute Neuts (auto) Absolute Nucleated RBC Nucleated RBC % (auto) Smear Tech's Comments VBG pH 7.31 L VBG pCO2 27 VBG pO2 75 VBG HCO3 14 L VBG O2 Saturation 91.0 VBG Base Excess -10.3 Sodium Potassium Chloride Carbon Dioxide Anion Gap BUN Creatinine Estim Creat Clear Calc Estimated GFR Fasting Glucose Lactic Acid F/U @ 2Hr 1.5 Calcium Total Bilirubin AST ALT Alkaline Phosphatase Total Creatine Kinase 586 H Total Protein Albumin 06/25/25 06:28 WBC 5.5 RBC 4.70 Hgb 11.6 L Hct 35.2 L MCV 74.9 L MCH 24.7 L MCHC 33.0 RDW 15.9 Plt Count 141 L D MPV 11.0 Immature Gran % (Auto) 0.4 Neut % (Auto) 58.1 Lymph % (Auto) 30.4 Mellette % (Auto) 9.1 Eos % (Auto) 1.3 Baso % (Auto) 0.7 Lymph # (Auto) 1.7 Mel[place] # (Auto) 0.5 Eos # (Auto) 0.1 Baso # (Auto) 0.0 Abs Immat Gran (auto) 0.02 Absolute Neuts (auto) 3.2 Absolute Nucleated RBC 0.000 Nucleated RBC % (auto) 0.0 Smear Tech's Comments VERIFIED VBG pH VBG pCO2 VBG pO2 VBG HCO3 VBG O2 Saturation VBG Base Excess Sodium 135 Potassium 2.8 L* D Chloride 101 Carbon Dioxide 24 Anion Gap 13 BUN 8 L Creatinine 0.77 Estim Creat Clear Calc 117.3 Estimated GFR > 60 Fasting Glucose 89 Lactic Acid F/U @ 2Hr Calcium 8.5 D Total Bilirubin 1.3 H AST 134 H ALT 83 H Alkaline Phosphatase 45 Total Creatine Kinase Total Protein 6.3 L Albumin 3.7 Discharge Plan Discharge Anticipated Discharge Date/Time: 06/25/25 15:46 Patient Disposition: Home, Self-Care Discharge Diagnosis: Alcohol withdrawal seizure Referrals: Physician,None [Primary Care Provider, Medical] - 1 Week Discharge Medications: No Action No Known Home Meds Discharge Orders: Discharge Order (Routine); Ordered 06/25/25 Ordered By: Kenneth Almanza Diet: Advance to usual diet Activity on Discharge: As tolerated Stand Alone Forms: Patient Portal Discharge page Print Language: [place] Care Plan Goals: Avoid alcohol at all costs Health Concerns: Heat to find a new PCP and make an appointment Plan of Treatment: Once you have a new PCP he can to EEG to rule out seizure disorder however unlikely Assessment: See discharge summary
== END 2025-06-25 17:00 | disposition home or self-care (01) | DRG 775 ==
LOC: HO.ED 17:00 → HO.EDOVER 17:15 → HO.IMC 19:09
PROVIDERS: Admitting Provider Hospitalist; Emergency Provider Emergency Medicine; Visit Provider Hospitalist
DX: F10.939 Alcohol use, unspecified with withdrawal, unspecified (principal); R56.9 Unspecified convulsions; F17.210 Nicotine dependence, cigarettes, uncomplicated; Z71.6 Tobacco abuse counseling
CPT/HCPCS: 36415; 70551; 80053; 80307; 82140; 82550; 82803; 83605; 83735; 85025; 93005; 99222; 99285; J1650; J2560; J3360; S9485

== ENCOUNTER → 2025-06-24 12:56 | Outpatient (BNV) | payer OTHER, SELFPAY | PROVIDERS: Visit Provider Internal Medicine Cardiovascular Disease | DX: R00.0 Tachycardia, unspecified (principal) | CPT/HCPCS: 93010 ==

== ENCOUNTER 2025-06-24 16:53 | Outpatient (BNV) | payer OTHER, SELFPAY | END 2025-06-24 18:45 | PROVIDERS: Admitting Provider Hospitalist; Emergency Provider Emergency Medicine; Visit Provider Radiology Diagnostic Radiology | DX: R56.9 Unspecified convulsions (principal) | CPT/HCPCS: 70551 ==

== ENCOUNTER → 2025-06-24 16:53 | Outpatient (BNV) | payer OTHER, SELFPAY | PROVIDERS: Admitting Provider Hospitalist; Emergency Provider Emergency Medicine; Visit Provider Hospitalist | DX: F10.130 Alcohol abuse with withdrawal, uncomplicated (principal); R56.9 Unspecified convulsions | CPT/HCPCS: 99222; 99239 ==